=== PATIENT | male | born 1980 | race Caucasian/White ===

== ENCOUNTER → 2021-12-25 08:36 | Outpatient (CLI) | payer MEDICARE, MEDICAID, SELFPAY ==
[2021-12-25 10:48] LABS: Alanine Aminotransferase 21 IU/L (<50); Albumin 4.5 g/dL (3.5-5.0); Albumin Globulin Ratio 1.6 (1.0-2.8); Alkaline Phosphatase 65 U/L (38-126); Aspartate Aminotransferase 25 IU/L (17-59); BUN Creatinine Ratio 13.3 (6-22); Bilirubin Total 0.4 mg/dL (0.2-1.3); Blood Urea Nitrogen 11 mg/dL (9-20); Calcium 9.7 mg/dL (8.4-10.2); Carbon Dioxide 28 mmol/L (22-32); Chloride 105 mmol/L (98-107); Cholesterol 146 mg/dL (140-199); Estimated Glomerular Filt Rate > 60.0 mL/min (>60); Globulin 2.8 g/dL (1.7-4.1); Glucose 102 mg/dL (70-100); HDL Cholesterol 34 mg/dL (40-60); HEMOLYSIS < 15 (0-50); LDL Cholesterol Calculated 99 mg/dL (<100); Potassium 4.3 mmol/L (3.4-5.1); Sodium 140 mmol/L (137-145); Total Protein 7.3 g/dL (6.3-8.2); Triglycerides 67 mg/dL (35-150)
== END ==
PROVIDERS: PCP Internal Medicine; Referring Provider Internal Medicine; Visit Provider Internal Medicine
DX: E78.2 Mixed hyperlipidemia (principal)
CPT/HCPCS: 36415; 80053; 80061

== ENCOUNTER → 2022-01-12 10:07 | Outpatient (CLI) | payer MEDICARE, MEDICAID, SELFPAY ==
[2022-01-12 13:11] LABS: COVID19 -Nasal RAPID Negative (Negative)
== END ==
PROVIDERS: PCP Internal Medicine; Visit Provider Surgery
DX: Z01.812 Encounter for preprocedural laboratory examination (principal); Z20.822 Contact with and (suspected) exposure to COVID-19
CPT/HCPCS: 87635; C9803

== ENCOUNTER → 2022-01-13 14:09 | Day surgery (SDC) | payer MEDICARE, MEDICAID, SELFPAY ==
[2022-01-13] VITALS (7 sets, daily range): BP systolic 115–138; BP diastolic 63–81; PULSE 74–95; RESP 12–16; TEMP 36.6–36.8; O2SAT 98–100; BMI 24.0; BMI 24.3
[2022-01-13] MEDS: LACTATED RINGERS 1,000 ML 42 ML IV (15:01)
--- NOTE | 2022-01-13 16:36 | PM.HP.1 ---
History of Present Illness History of Present Illness Date Patient Seen: 01/13/22 Time Patient Seen: 16:36 Chief complaint: NCC Narrative: 41-year-old man with a symptomatic left inguinal hernia which has been bothering her for over year now. He had hernia repair as an . Patient History Medical History Allergies (~1999) Chronic back pain (~2014) Mixed hyperlipidemia Surgical History Anesthesia History of hernia repair (~1981) Family & Social History Family History Father Mental health problem Mother Back problem Diabetes mellitus Hypertension Hyperlipidemia Grandmother Cancer Diabetes mellitus History of heart disease Hyperlipidemia Hypertension Social History: household members family Tobacco & Substance use: Tobacco type cigarettes Smoking Status Current every day smoker Smoking packs per day 1 alcohol intake current alcohol intake frequency a few times a month Substance Use Type does not use Meds Home Medications and Allergies Home Medications Medication Instructions Recorded Confirmed Type atorvastatin 10 mg tablet 10 mg PO BEDTIME 12/02/21 01/13/22 History Allergies Allergy/AdvReac Type Severity Reaction Status Date / Time No Known Drug Allergies Allergy Verified 12/11/21 13:18 Exam Vital Signs (past 8 hours): - 01/13/22 14:52 Temperature 98.2 F Pulse Rate 95 H Respiratory Rate 16 Blood Pressure 138/81 Pulse Oximetry 98 Oxygen Delivery Method Room Air Const General: healthy appearing Resp Effort & Inspection: normal respiratory effort GI Other: Left inguinal hernia Assessment & Plan Assessment and plan (1) Reducible left inguinal hernia: Status: Acute Plan 41-year-old man with a symptomatic left inguinal hernia. He would like to have surgery to repair it. We reviewed the risks and benefits of left inguinal hernia repair with mesh. He would like to proceed. COVID-19 COVID-19 status: Negative Result date/Date tested (Pos, Neg/Pending): 01/12/22 Time Spent With Patient Critical Care time: I spent a total of [] minutes of critical care time on this patient's care today; this time is exclusive of procedural time.
[2022-01-13] MEDS: CEFAZOLIN 2 GM/20 ML SYRINGE IV (16:55)
--- NOTE | 2022-01-13 17:25 | SUR.OPER ---
Supine on padded OR bed, head on pillow, arms secured on padded arm boards at <90 degrees abduction, legs uncrossed, safety belt at thigh, tape over blanket over lower legs.
[2022-01-13] MEDS: BUPIVACAINE 0.5% (PF) 30 ML, EPINEPHrine 0.15 MG INJ (17:29)
[2022-01-13] MEDS: LIDOCAINE 1% 20 ML INJ (17:30)
--- NOTE | 2022-01-13 18:11 | PM.OP.1 ---
Operative Date/Time/Diagnoses Date of procedure: 01/13/22 Time of procedure: 18:12 Pre-op diagnosis: Recurrent left inguinal hernia Post-op diagnosis: same Procedure & Clinicians Procedure: Recurrent left inguinal hernia repair with mesh Same procedure as scheduled: Yes Surgeon: Herb Traylor Anesthesia Type: General Operative Notes Findings: Indirect hernia Procedure in detail: Preoperative antibiotic was administered. The patient was brought to the operating room and placed on the table in supine position general anesthesia was induced. The left groin was prepped and draped in the normal fashion and a time-out was performed. Roughly 10 mL of local anesthetic were injected into the skin and subcutaneous adipose tissue over the left groin. A 6 cm incision was made over the left distal portion of the old surgical scar. Dissection was carried down through the subcutaneous adipose tissue. We exposed the external oblique aponeurosis in the direction of the fibers. Additional local was injected deep to the aponeurosis. A 15 blade scalpel was used to meliton the external oblique aponeurosis. Metzenbaum scissors were used to carefully open the aponeurosis in the direction of the fibers. The ilioinguinal nerve was not seen and was presumed resected during his prior operation. We completely exposed the inguinal canal. The cord was dissected free from the inguinal ligament and floor of the inguinal canal and the external oblique aponeurosis was dissected off of the internal oblique. We encircled the cord with a Artie drain for retraction. There was an indirect hernia. Because the sac was long we transected the sac at the mid point and left the distal end open. The proximal portion of the sac contained visceral fat that was adherent to the sac lining. The sac was allowed to fall back into the abdomen. We then fashioned a piece of polypropylene mesh to fit the inguinal canal floor. The mesh was secured with multiple interrupted 3-0 Prolene sutures to the pubic tubercle and shelving edge of the inguinal ligament as well as to the conjoint tendon medially. We cut a slit in the mesh and overlapped the tails to recreate an internal ring and secured the medial tail to the inguinal ligament with additional sutures. We injected some more local into the fatty tissue in the inguinal canal and cord. Finally, we removed the Moca drain and closed the external oblique fascia with a running 3-0 Vicryl suture. Skin was closed with interrupted 3-0 Vicryl dermal sutures and a running 4 Monocryl subcuticular stitch. EBL 5 mL The patient was awakened and brought to recovery room. Post-operative Condition: stable Disposition: PACU
[2022-01-13] MEDS: OXYCODONE IR 5 MG TABLET PO (18:39)
[2022-01-13] MEDS: ACETAMINOPHEN 325 MG TABLET 650 MG PO (18:40)
--- NOTE | 2022-01-13 18:44 | SUR.PHASEI ---
Pt arrived to PACU, airway self maintained, medicated with po pain meds, no nausea, tolerating fluids and applesauce.
--- NOTE | 2022-01-13 19:06 | SUR.PHASEII ---
d/c instructions discussed, mom called, pt ready to go, dressing remained c/d/i. Pt left unit in stab;le condition.
== END | disposition home or self-care (01) ==
PROVIDERS: PCP Internal Medicine; Referring Provider Surgery; Visit Provider Surgery
PROC: (CPT 49520; principal; 2022-01-13 15:45)
DX: K40.91 Unilateral inguinal hernia, without obstruction or gangrene, recurrent (principal)
CPT/HCPCS: 49520; J0171; J0690; J1100; J2405; J2704; J3010

== ENCOUNTER 2022-08-19 17:33 | Emergency (ER) | payer MEDICARE, MEDICAID, SELFPAY ==
[2022-08-19 17:38] VITALS: BP 150/77; PULSE 77; RESP 14; TEMP 36.5; O2SAT 99; BMI 24.3
--- NOTE | 2022-08-19 17:42 | DI.RAD.S_ITS ---
PROCEDURE: XR HAND RT MIN 3V INDICATIONS: hand pain TECHNIQUE: 3 views of the hand(s) acquired. COMPARISON: None. FINDINGS: Bones: No fractures or dislocations. Carpal bones are normally aligned. No suspicious bony lesions. Soft tissues: No suspicious soft tissue calcifications. IMPRESSION: Hand plain films within normal limits. Dictated by: Uziel Palacio M.D. on 08/19/2022 at 17:05 Approved by: Uziel Palacio M.D. on 08/19/2022 at 17:05
--- NOTE | 2022-08-19 18:09 | ED.EXTPRO ---
HPI - Extremity Problem General Chief complaint: Extremity Problem,Nontraumatic Stated complaint: rt middle finger pain Time Seen by Provider: 08/19/22 18:04 Source: patient Mode of arrival: Ambulatory History of Present Illness HPI Narrative: Patient is a healthy 42-year-old male is who presents with right middle finger pain and swelling. 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 he has noticed over the last couple days it to be more painful he is able to move it is not extremely swollen or red but does hurt when he moves it he denies any injury he has not yet taken anything for pain Related Data Allergies Allergy/AdvReac Type Severity Reaction Status Date / Time No Known Drug Allergies Allergy Verified 08/19/22 17:39 Review of Systems Review of Systems Narrative: GENERAL: Denies chills,fever HEENT: Denies throat pain RESPIRATORY: Denies dyspnea, cough, wheezing CARDIOVASCULAR: Denies chest pain, palpitations GASTROINTESTINAL: Denies nausea, vomiting MUSCULOSKELETAL: See HPI SKIN: No rash, no laceration, no pruritus NEUROLOGIC: Denies weakness, dizziness, headache, numbness 8 point review of systems is negative except for those stated above and HPI Patient History Medical History Allergies (~1999) Chronic back pain (~2014) Mixed hyperlipidemia Reducible left inguinal hernia Surgical History Anesthesia History of hernia repair (01/13/22) Family History Father Mental health problem Mother Back problem Diabetes mellitus Hypertension Hyperlipidemia Grandmother Cancer Diabetes mellitus History of heart disease Hyperlipidemia Hypertension Social History household members: family Smoking Status: Current every day smoker alcohol intake: current Smoking Status: Current every day smoker alcohol intake frequency: holidays/special occasions only Substance Use Type: does not use Exam Initial Vital Signs Initial Vital Signs: Vital Signs Temperature 97.7 F 08/19/22 17:38 Pulse Rate 77 08/19/22 17:38 Respiratory Rate 14 08/19/22 17:38 Blood Pressure 150/77 H 08/19/22 17:38 Pulse Oximetry 99 08/19/22 17:38 Oxygen Delivery Method 08/19/22 17:38 GENERAL: Well-appearing, well-nourished and in no acute distress. CARDIOVASCULAR: peripheral pulses in tact, cap refill <2 sec RESPIRATORY: No respiratory distress, speaks in full sentences without difficulty EXTREMITIES: Normal range of motion, no clubbing or edema. Neurovascularly intact In the right hand with finger mildly swollen not erythematous full range of motion mildly tender to touch on the palmar side calluses noted good cap refill NEUROLOGICAL: Cranial nerves II through XII grossly intact. Normal gait and speech. SKIN: Warm, dry, no petechiae, no rashes or lesions. Course Orders Ordered: ED Orders 08/19/22 17:42 XR hand RT min 3V Stat Discontinued Medications Ibuprofen (Ibuprofen 400 Mg Tablet) 800 mg PO NOW ONE Stop: 08/19/22 18:15 Last Admin: 08/19/22 18:22 Dose: 800 mg Documented By: SUSAN Vital Signs Vital signs: Vital Signs - 8 hr 08/19/22 17:38 Temperature 97.7 F Pulse Rate 77 Respiratory Rate 14 Blood Pressure 150/77 H Pulse Oximetry 99 Oxygen Delivery Method Room Air MDM - Extremity (Nontraumatic) Imaging Data Extremity x-ray #1: Radiologist's Impression: Patient: Elmer Blas MR#: [id number] : 1980 Acct:[id number] Age/Sex: 42 / M Date of Service: 08/19/22 Loc: ED Accession Number: [id number] ?? Procedure: XR hand RT min 3V Ordering Provider: Woo Umanzor MD PROCEDURE:? XR HAND RT MIN 3V ? INDICATIONS:? hand pain ? TECHNIQUE:? 3 views of the hand(s) acquired.? ? COMPARISON:? None. ? FINDINGS:? ? Bones:? No fractures or dislocations.? Carpal bones are normally aligned.? No suspicious bony lesions.? ? Soft tissues:? No suspicious soft tissue calcifications.? ? ? IMPRESSION:? ? Hand plain films within normal limits. ? ? Dictated by: Uziel Palacio M.D. on 08/19/2022 at 17:05 ? ? Approved by: Uziel Palacio M.D. on 08/19/2022 at 17:05 ? MDM Narrative Medical decision making narrative: Patient's finger is mildly swollen without injury x-rays negative. No concern for flexor tenosynovitis. No concern for trigger finger. Probable strain. He is right-hand dominant and works in construction. Given strict return precautions. Discharge Plan Departure Patient Disposition: Home Clinical Impression: Muscle strain of finger of right hand Instructions: DI for Trigger Finger, DI for Finger Sprain Activity Restrictions/Additional Instructions: *You have been diagnosed with right middle finger sprain *What to do: At this time try to rest her hand ice 20-30 minutes at a time especially after work. Monitor for any worsening symptoms *Continue to take medications as directed Ibuprofen 600 mg every 6 hours if needed for [id number] pain *Follow up with your primary care provider in 2-3 days or call [phone] *Return to ER if you should have increasing swelling pain difficulty moving redness fever or any new, worsening or concerning symptoms Referrals: Roney Earl MD [Primary Care Provider] - Visit Report Forms: Patient Portal/API
[2022-08-19] MEDS: IBUPROFEN 400 MG TABLET 800 MG PO (18:22)
== END 2022-08-19 18:23 | disposition home or self-care (01) ==
PROVIDERS: Emergency Provider Emergency Medicine; PCP Internal Medicine
DX: S56.113A Strain of flexor muscle, fascia and tendon of right middle finger at forearm level, initial encounter (principal); X58.XXXA Exposure to other specified factors, initial encounter; Y99.0 Civilian activity done for income or pay
CPT/HCPCS: 73130; 99283

== ENCOUNTER 2022-08-23 15:04 | Emergency (ER) | payer MEDICARE, MEDICAID, SELFPAY ==
[2022-08-23 15:29] VITALS: BP 109/69; PULSE 90; RESP 18; TEMP 37.3; O2SAT 97; BMI 24.3
--- NOTE | 2022-08-23 17:32 | ED_ITS ---
HPI - Extremity Problem <Oral Fernandez PA-C - Last Filed: 08/23/22 17:41> General Chief complaint: Extremity Problem,Nontraumatic Stated complaint: Wrist pain Time Seen by Provider: 08/23/22 16:40 Source: patient Mode of arrival: Ambulatory History of Present Illness HPI Narrative: Patient is a 42-year-old male who presents to the emergency room today with complaint of right wrist pain started this morning. Admits to being seen here in this emergency room a mid last week for right middle finger pain. States an x-ray was done and was negative and also states he was diagnosed with a finger sprain at that time states she is concerned right now because he felt a pop in his wrist and thinks that maybe injured it. Denies any trauma to the wrist before his visit to the emergency room last week and before the visit today. Denies any other concerns. Related Data Allergies Allergy/AdvReac Type Severity Reaction Status Date / Time No Known Drug Allergies Allergy Verified 08/19/22 17:39 Review of Systems <Oral Fernandez PA-C - Last Filed: 08/23/22 17:41> Review of Systems Narrative: R.O.S.: General: No fever, chills or fatigue. Cardiovascular: No chest pain or palpitations Respiratory: No S.O.B. HEENT: No congestion, ear pain, rhinorrhea, sore throat or tinnitus Gastrointestinal: No nausea or vomiting : No urinary concerns Skin: No rash or associated abnormalities Musculoskeletal: Right wrist pain? Neurological: Awake, alert and in not apparent distress. No Headaches, changes in vision or other related neurological concerns. Patient History <Oral Fernandez PA-C - Last Filed: 08/23/22 17:41> Medical History Allergies (~1999) Chronic back pain (~2014) Mixed hyperlipidemia Reducible left inguinal hernia Surgical History Anesthesia History of hernia repair (01/13/22) Family History Father Mental health problem Mother Back problem Diabetes mellitus Hypertension Hyperlipidemia Grandmother Cancer Diabetes mellitus History of heart disease Hyperlipidemia Hypertension Social History (Reviewed 08/19/22 @ 18:10 by ALYCE Tipton household members: family Smoking Status: Current every day smoker alcohol intake: current Smoking Status: Current every day smoker alcohol intake frequency: holidays/special occasions only Substance Use Type: does not use Exam <Oral Fernandez PA-C - Last Filed: 08/23/22 17:41> Narrative Exam Narrative: Physical Exam: ? General: normal appearance, well developed, well nourished, alert, and awake. Not in acute distress. ? Head: Normocephalic, no lesions. Chest: Lungs CTAB, no rales, rhonchi or wheezes. ?? Heart: RRR, no murmurs, rubs or gallops. Eyes: PERRLA, EOM's full, conjunctivae clear. ? Neuro: Physiological, no localizing findings, CN3-12 intact. ?? Extremities: Patient's right hand and wrist have good range of motion good strength intact sensation to touch and good capillary refill. Hand and wrist also have no signs of visible trauma. ? Skin: Normal, no rashes, no lesions noted. ?? PSYCHIATRIC: The mood is good, no blunted affect. Speech is clear. Thought process is linear, thought content is appropriate. The voice is without significant inflection. Gastrointestinal: Soft; NT; ND; Pos BS with Neg. rebound tenderness. No scars or major deformities noted on Visual Inspection. Initial Vital Signs Initial Vital Signs: Vital Signs Temperature 99.2 F 08/23/22 15:29 Pulse Rate 90 08/23/22 15:29 Respiratory Rate 18 08/23/22 15:29 Blood Pressure 109/69 08/23/22 15:29 Pulse Oximetry 97 08/23/22 15:29 Oxygen Delivery Method 08/23/22 15:29 <Antonio Barrera DO - Last Filed: 08/23/22 17:54> Initial Vital Signs Initial Vital Signs: Vital Signs Temperature 99.2 F 08/23/22 15:29 Pulse Rate 90 08/23/22 15:29 Respiratory Rate 18 08/23/22 15:29 Blood Pressure 109/69 08/23/22 15:29 Pulse Oximetry 97 08/23/22 15:29 Oxygen Delivery Method 08/23/22 15:29 Course <Oral Fernandez PA-C - Last Filed: 08/23/22 17:41> Vital Signs Vital signs: Vital Signs - 8 hr 08/23/22 15:29 Temperature 99.2 F Pulse Rate 90 Respiratory Rate 18 Blood Pressure 109/69 Pulse Oximetry 97 Oxygen Delivery Method Room Air <Antonio Barrera DO - Last Filed: 08/23/22 17:54> Vital Signs Vital signs: Vital Signs - 8 hr 08/23/22 15:29 Temperature 99.2 F Pulse Rate 90 Respiratory Rate 18 Blood Pressure 109/69 Pulse Oximetry 97 Oxygen Delivery Method Room Air MDM - Extremity (Nontraumatic) <Oral Fernandez PA-C - Last Filed: 08/23/22 17:41> MDM Narrative Medical decision making narrative: Patient is a 42-year-old male presents to the emergency room complaining of right wrist pain after being seen in emergency room last Wednesday for right finger pain. Patient denies trauma to the hand or wrist and Physical exam does not reveal any signs of urgent emergent status this time. Provider discussed emergent or urgent concerns with patient and advised patient to return emergency room should any emergent concerns arise. Discharge Plan Departure Patient Disposition: Home Clinical Impression: Sprain and strain of right wrist Instructions: DI for Wrist Sprain Activity Restrictions/Additional Instructions: *You have been diagnosed with sprain of your right wrist. Suggested refrain from any overuse or strenuous activity involving right wrist. Also suggest she return to the emergency room for any emergent concerns arise. [ ] *What to do: *Please continue to take your regular medications as directed. [ ] New medication prescriptions sent to your pharmacy: [ ] [ ] New medication written as a paper prescription [x] No new medications given *Please follow up with your primary care provider in 2-3 days, call for an appointment. Let them know you were seen in the Emergency Department and that we ask that you be seen in follow up. We will electronically transmit a record of today's note if your PCP is in our system *If you do not have a primary care provider please contact the [facility] Resource line at [phone]. They will ask some questions about your medical history and help get you set up with a doctor in the community. *Return to Emergency Department if you should have any new, worsening or concerning symptoms, such as [fever greater than 101 F, shaking chills, worsening pain, persistent vomiting or other bothersome symptoms] Referrals: Roney Earl MD [Primary Care Provider] - <Antonio Barrera, - Last Filed: 08/23/22 17:54> Cosign ED Attending Cosignature Attestation: Dr Barrera Co-Sign Statement: I was available for consultation during this patient's emergency department visit. This chart is signed by myself for administrative purposes only. I did not have direct contact with this patient during this visit. They were seen independently by the APC.
== END 2022-08-23 17:58 | disposition home or self-care (01) ==
PROVIDERS: Emergency Provider Physician Assistant; PCP Internal Medicine
DX: S63.501A Unspecified sprain of right wrist, initial encounter (principal); S66.911A Strain of unspecified muscle, fascia and tendon at wrist and hand level, right hand, initial encounter; X50.1XXA Overexertion from prolonged static or awkward postures, initial encounter
CPT/HCPCS: 99281

== ENCOUNTER 2023-01-01 17:09 | Emergency (ER) | payer MEDICARE, MEDICAID, SELFPAY ==
[2023-01-01 17:14] VITALS: BP 139/78; PULSE 89; RESP 18; TEMP 37.2; O2SAT 100; BMI 25.0
--- NOTE | 2023-01-01 17:20 | DI.RAD.S_ITS ---
PROCEDURE: XR FINGER RT MIN 2V INDICATIONS: pain, popping/swelling, ongoing TECHNIQUE: AP hand, 2 views of the 3rd finger(s) acquired. COMPARISON: [facility], , XR HAND RT MIN 3V, 08/19/2022, 17:52. FINDINGS: Bones: No fractures or dislocations. No suspicious bony lesions. Soft tissues: No suspicious soft tissue calcifications. IMPRESSION: No acute osseous abnormalities. If clinical symptoms persist or clinical suspicion for pathology is high, a repeat examination in 7-10 days, or advanced imaging such as CT or MRI is suggested for further evaluation. Dictated by: Beth Hightower M.D. on 01/01/2023 at 19:01 Approved by: Beth Hightower M.D. on 01/01/2023 at 19:02
--- NOTE | 2023-01-01 18:32 | ED_ITS ---
HPI - Recheck/Abnormal Lab/Rx <Nissa Ventura PA-C - Last Filed: 01/01/23 19:33> General Chief Complaint: Recheck/Abnormal Lab/Rx Stated Complaint: Pain in finger, Hernia Time Seen by Provider: 01/01/23 18:32 Source: patient Mode of arrival: Ambulatory History of Present Illness HPI narrative: 42-year-old male presents with concern for popping sensation in his right middle finger when he flexes it and wanting his hernia area that has previously been repaired to be looked at as it has been ?feeling funny today?. Regarding his finger he states that about 3 or 4 months ago he noticed it was popping when he flexes it he is not noticed any change in function or dropping things or any reduction in the strength he has not had any numbness tingling or color change to the finger does say sometimes he feels like it swells up a little bit and then it improves. He does not remember sustaining any specific injury to it. Regarding his hernia he states that he had hernia repair about 1 year ago and today he noticed a mild persistent on feeling at the area of his hernia scar he does not describe it as pain but he just wants the area to be looked at. He denies fevers, chills, abdominal pain, nausea, vomiting, diarrhea or any other symptoms. Related Data Allergies Allergy/AdvReac Type Severity Reaction Status Date / Time No Known Drug Allergies Allergy Verified 08/19/22 17:39 Review of Systems <Nissa Ventura PA-C - Last Filed: 01/01/23 19:33> Review of Systems Narrative: Unremarkable except as noted in the HPI Patient History <Nissa Ventura PA-C - Last Filed: 01/01/23 19:33> Medical History Allergies (~1999) Chronic back pain (~2014) Mixed hyperlipidemia Reducible left inguinal hernia Surgical History Anesthesia History of hernia repair (01/13/22) Family History Father Mental health problem Mother Back problem Diabetes mellitus Hypertension Hyperlipidemia Grandmother Cancer Diabetes mellitus History of heart disease Hyperlipidemia Hypertension Social History household members: family Smoking Status: Current every day smoker alcohol intake: current Smoking Status: Current every day smoker alcohol intake frequency: holidays/special occasions only Substance Use Type: does not use Exam <Nissa Vnetura PA-C - Last Filed: 01/01/23 19:33> Narrative Exam Narrative: Entire exam was completed with logistics center manager in the room GENERAL: 42 year old patient appears stated age. Well-developed patient, in mild distress. HEAD: Atraumatic. Normocephalic. EYES: Pupils equal round and reactive. Extraocular motions intact. No scleral icterus. No injection or drainage. ENT: Nose without bleeding, purulent drainage. Airway patent. NECK: Trachea midline. Non tender CARDIOVASCULAR: Regular rate and rhythm without murmurs, gallops, or rubs. RESPIRATORY: Clear to auscultation. Breath sounds equal bilaterally. No wheezes, rales, or rhonchi. GASTROINTESTINAL: Abdomen soft, non-tender, nondistended, palpation over the left inguinal hernia scar and left lower quadrant is nontender with no masses, pt states that feels good. EXTREMITIES: The right middle finger in question has no appreciable swelling, no tenderness on exam, range of motion and strength are intact. Capillary refill is less than 2 seconds. No edema or joint tenderness. BACK: Nontender without deformity or crepitance. No flank tenderness. NEURO: AOx3. SKIN: No rash or erythema of visible areas Initial Vital Signs Initial Vital Signs: Vital Signs Temperature 99 F 01/01/23 17:14 Pulse Rate 89 01/01/23 17:14 Respiratory Rate 18 01/01/23 17:14 Blood Pressure 139/78 01/01/23 17:14 Pulse Oximetry 100 01/01/23 17:14 Oxygen Delivery Method 01/01/23 17:14 <Sandra Sanderson DO - Last Filed: 01/02/23 07:38> Initial Vital Signs Initial Vital Signs: Vital Signs Temperature 99 F 01/01/23 17:14 Pulse Rate 89 01/01/23 17:14 Respiratory Rate 18 01/01/23 17:14 Blood Pressure 139/78 01/01/23 17:14 Pulse Oximetry 100 01/01/23 17:14 Oxygen Delivery Method 01/01/23 17:14 Course <Nissa Ventura PA-C - Last Filed: 01/01/23 19:33> Orders Ordered: ED Orders 01/01/23 17:20 XR finger RT min 2V Stat Vital Signs Vital signs: Vital Signs - 8 hr 01/01/23 17:14 01/01/23 18:52 Temperature 99 F Pulse Rate 89 80 Respiratory Rate 18 17 Blood Pressure 139/78 138/70 Pulse Oximetry 100 98 Oxygen Delivery Method Room Air <Sandra Sanderson DO - Last Filed: 01/02/23 07:38> Orders Ordered: ED Orders 01/01/23 17:20 XR finger RT min 2V Stat Vital Signs Vital signs: Vital Signs - 8 hr 01/01/23 17:14 01/01/23 18:52 Temperature 99 F Pulse Rate 89 80 Respiratory Rate 18 17 Blood Pressure 139/78 138/70 Pulse Oximetry 100 98 Oxygen Delivery Method Room Air MDM - Recheck/Abnormal Lab/Rx <Nissa Ventura PA-C - Last Filed: 01/01/23 19:33> Differential Diagnosis Differential diagnosis: Likely other (Encounter for evaluation of finger popping/intermittent pain, recheck of surgical hernia repair site) Medical Records Attestation: I reviewed the patient's medical records. Imaging Data Extremity x-ray #1: Radiologist's Impression: [place] [address] XRay Report Signed Patient: Elmer Blas MR#: [id number] : 1980 Acct:[id number] Age/Sex: 42 / M Date of Service: 01/01/23 Loc: ED Accession Number: [id number] ?? Procedure: XR finger RT min 2V Ordering Provider: Sandra Sanderson D.O. PROCEDURE:? XR FINGER RT MIN 2V ? INDICATIONS:? pain, popping/swelling, ongoing ? TECHNIQUE:? AP hand, 2 views of the 3rd finger(s) acquired.? ? COMPARISON:? [facility], , XR HAND RT MIN 3V, 08/19/2022, 17:52. ? FINDINGS:? ? Bones:? No fractures or dislocations.? No suspicious bony lesions.? ? Soft tissues:? No suspicious soft tissue calcifications.? ? IMPRESSION:? No acute osseous abnormalities.? If clinical symptoms persist or clinical suspicion for pathology is high, a repeat examination in 7-10 days, or advanced imaging such as CT or MRI is suggested for further evaluation. ? ? Dictated by: Beth Hightower M.D. on 01/01/2023 at 19:01 ? ? Approved by: Beth Hightower M.D. on 01/01/2023 at 19:02?? MDM Narrative Medical decision making narrative: 42-year-old male presents with multiple complaints, wants his finger right middle evaluated for popping sensation and intermittent swelling also wants his left inguinal hernia repair site looked at. X-rays today of the right middle finger show nothing concerning. Abdominal exam is also unremarkable. Patient is advised to follow up with his PCP and consider seeing orthopedics for further evaluation and but has concerns about his finger. Follow up with his surgeon if he has concerns regarding his hernia repair. Labs are not obtained abdominal imaging is not obtained as patient has no abdominal pain no tenderness on exam and no concerning history suggestive of intra-abdominal process. Return precautions provided, follow-up plan discussed, all questions answered. Discharge Plan Departure Patient Disposition: Home Clinical Impression: Finger pain, right, Status post inguinal hernia repair Activity Restrictions/Additional Instructions: Thank you for letting us be part of your care today in the emergency department. We did x-ray your finger. The function of your finger on exam seems to be totally normal, not finding any abnormalities on your x-ray either. It is possible that you at 1 point sustained an overuse injury or a sprain to your tendon on that finger which could explain why it makes a popping sound occasionally. If you have concern about it you can talk to your primary care provider about seeing an orthopedist for further evaluation. You also said that you wanted your hernia area to be checked where he previously had surgery. You do not have any belly pain on exam or any concerning findings. So no additional workup or evaluation was completed today. Just monitor your symptoms at home over the next few days to week, if you do feel that you are having new or worsening abdominal pain or other symptoms of concern do not hesitate to be re- evaluated. You can always check back in with your surgeon if you have concerns. There is no evidence of an emergent or life threatening illness at this time, but follow up with your doctor in 1-2 days is recommended nonetheless to continue to rule out serious underlying causes of your symptoms. Please call the office for an appointment. Please return to the Emergency Department for any worsening or persistent symptoms. Please take medications as directed. Referrals: Roney Earl MD [Primary Care Provider] - Stand Alone Forms: Patient Portal/API <Sandra Sanderson DO - Last Filed: 01/02/23 07:38> Cosign ED Attending Jellyature Attestation: I was immediately available in the department for consultation. Documentation has been reviewed.
[2023-01-01 18:52] VITALS: BP 138/70; PULSE 80; RESP 17; O2SAT 98
--- NOTE | 2023-01-01 18:53 | PC.NURSE ---
ward maid for provider to examine, full rom to r hand middle finger, no pain to llq/abd surgical site no pain to palpation no hernia [id number]
== END 2023-01-01 19:02 | disposition home or self-care (01) ==
PROVIDERS: Emergency Provider Student in an Organized Health Care Education/Training Program; PCP Internal Medicine
DX: M79.644 Pain in right finger(s) (principal); Z98.890 Other specified postprocedural states
CPT/HCPCS: 73140; 99283

== ENCOUNTER 2023-01-09 13:22 | Emergency (ER) | payer MEDICARE, MEDICAID, SELFPAY ==
[2023-01-09] VITALS (8 sets, daily range): BP systolic 117–151; BP diastolic 74–86; PULSE 75–95; RESP 16–26; TEMP 37.3; O2SAT 98–99; BMI 24.3
--- NOTE | 2023-01-09 13:28 | DI.RAD.S_ITS ---
PROCEDURE: XR CHEST 2V INDICATIONS: pain in chest with deep breath TECHNIQUE: 2 views of the chest were acquired. COMPARISON: None. FINDINGS: Surgical changes and devices: None. Lungs and pleura: Lungs are clear. No pleural effusions or pneumothorax. Mediastinum: Mediastinal contours are normal. Heart size is normal. Bones and chest wall: No suspicious bony abnormalities. Soft tissues appear unremarkable. IMPRESSION: Normal two view chest x-ray Approved by: Adrian Márquez M.D. on 01/09/2023 at 14:19
--- NOTE | 2023-01-09 16:52 | ED_ITS ---
HPI - Chest Pain General Chief Complaint: Chest Pain Stated Complaint: thightness in chest Time Seen by Provider: 01/09/23 16:52 Source: patient Mode of arrival: Family Vehicle Limitations: no limitations History of Present Illness HPI narrative: This is a 42-year-old male with history of chronic tobacco use, seasonal allergies which he just started Zyrtec for today. Patient states the past 3 or 4 days he is had runny nose, cough that has been nonproductive, he is not had any reported fevers. He is felt generally unwell. States today he felt tight all over on both sides of his lungs and had a little left-sided discomfort that resolved. He denies any shortness of breath. Patient states no new swelling in his extremities. No nausea no vomiting no diarrhea constipation. No urinary symptoms. Patient states he is not had similar symptoms in the past. He states it seems to be flared by his recent allergy symptoms. States he is never felt tight or wheezy in his chest, he is not had left-sided discomfort before. He states no daily medications normally. He did take Zyrtec for the 1st time today which he states it has been helpful. He states he has been taking Advil intermittently he was seen in the last week for injury to his tendon in his finger. He denies any other daily medications. No prior medical history. States he had a hernia repair about a year ago. No known drug allergies. S tates he smokes about half pack per day occasional ETOH. Denies any illicit or IV drugs. Denies any family history of cardiac, pulmonary embolic. States his primary care is Dr. Earl. Related Data Previous Rx's Medication Instructions Recorded prednisone 20 mg tablet 40 mg PO DAILY #8 tabs 01/09/23 Allergies Allergy/AdvReac Type Severity Reaction Status Date / Time No Known Drug Allergies Allergy Verified 01/09/23 13:27 Review of Systems Review of Systems ROS Unobtainable: All systems reviewed & are unremarkable except as noted in HPI and below Patient History Medical History Allergies (~1999) Chronic back pain (~2014) Mixed hyperlipidemia Reducible left inguinal hernia Surgical History Anesthesia History of hernia repair (01/13/22) Family History Father Mental health problem Mother Back problem Diabetes mellitus Hypertension Hyperlipidemia Grandmother Cancer Diabetes mellitus History of heart disease Hyperlipidemia Hypertension Social History household members: family Smoking Status: Current every day smoker alcohol intake: current Smoking Status: Current every day smoker alcohol intake frequency: holidays/special occasions only Substance Use Type: does not use Exam Narrative Exam Narrative: GENERAL: Alert and oriented x three, male in mild distress HEENT: Head normocephalic, atraumatic, EOMI, pupils reactive, face symmetric, moist mucous membranes NECK: Supple, full range of motion CARDIOVASCULAR: Regular rate and rhythm without murmurs, rubs or gallops. RESPIRATORY: Breath sounds equal bilaterally, no wheezes, no rhonchi. Patient has some questionable crackles mid lung. Not appreciated in the bases they are clear. No wheeze, patient has good air movement bilaterally. No tachypnea. Speaks in full sentences.. ABDOMEN: Soft, nontender. Normoactive bowel sounds all 4 quadrants. No guarding or rebound, rigidity, no mass : No CVA tenderness EXTREMITIES: Normal range of motion, no clubbing or edema. Neurovascularly intact NEUROLOGICAL: Cranial nerves II through XII grossly intact. Moving all extremities SKIN: Warm, dry, no petechiae, no rashes or lesions. Initial Vital Signs Initial Vital Signs: Vital Signs Temperature 99.2 F 01/09/23 13:25 Pulse Rate 95 H 01/09/23 13:25 Respiratory Rate 16 01/09/23 13:25 Blood Pressure 151/79 H 01/09/23 13:25 Pulse Oximetry 99 01/09/23 13:25 Oxygen Delivery Method 01/09/23 13:25 Scores HEART Score Heart Score history: Slightly Suspicious Heart Score EKG: Non-Specific repolarization disturbance Heart Score Age: < 45 years old Heart Score risk factors: No known risk factors Heart Score troponin: < or = to normal limit Heart Score Total: 1 PERC Score Age greater than or equal to 50 years: No Heart rate greater than or equal to 100 bpm: No Room Air O2 Sat less than 95%: No Unilateral leg swelling: No Recent trauma or surgery: No Hemoptysis: No Prior PE or DVT: No Hormone Use: No Total PERC Score: 0 Course Orders Ordered: ED Orders 01/09/23 13:28 XR chest 2V Stat 01/09/23 13:35 EKG-12 Lead Routine 01/09/23 17:19 Complete Blood Count AUTO DIFF Stat Comprehensive Metabolic Panel Stat Covid-19 + FLU A/B + RSV - PCR Stat Lipase Stat NT-proBNP (BNP-Adult 18+) Stat Troponin & CK Cardiac Panel Stat Discontinued Medications Prednisone (Prednisone 20 Mg Tablet) 60 mg PO NOW ONE Stop: 01/09/23 17:08 Last Admin: 01/09/23 17:38 Dose: 60 mg Documented By: NR Vital Signs Vital signs: Vital Signs - 8 hr 01/09/23 13:25 01/09/23 16:14 01/09/23 16:15 Temperature 99.2 F Pulse Rate 95 H 94 H 90 Respiratory Rate 16 Blood Pressure 151/79 H Pulse Oximetry 99 99 99 Oxygen Delivery Method Room Air 01/09/23 16:15 01/09/23 16:30 01/09/23 16:30 Temperature Pulse Rate 82 Respiratory Rate 19 Blood Pressure 143/86 H 121/76 Pulse Oximetry 99 Oxygen Delivery Method 01/09/23 17:00 01/09/23 17:00 01/09/23 17:30 Temperature Pulse Rate 84 Respiratory Rate 26 H Blood Pressure 139/84 117/76 Pulse Oximetry 98 Oxygen Delivery Method 01/09/23 17:30 01/09/23 18:00 01/09/23 18:00 Temperature Pulse Rate 75 76 Respiratory Rate 24 16 Blood Pressure 119/76 Pulse Oximetry 99 98 Oxygen Delivery Method 01/09/23 18:30 01/09/23 18:30 Temperature Pulse Rate 80 Respiratory Rate 23 Blood Pressure 119/74 Pulse Oximetry 99 Oxygen Delivery Method MDM - Chest Pain Lab Data 01/09/23 17:19 01/09/23 17:19 Labs: Lab Results 01/09/23 01/09/23 01/09/23 Range/Units 17:19 17:19 17:19 WBC 11.5 H (4.5-11.0) X10^3/uL RBC 4.61 (4.5-5.9) X10^6/uL Hgb 15.3 (13.5-17.5) g/dL Hct 44.1 (41-53) % MCV 95.7 (80-100) fL MCH 33.1 (26-34) PG MCHC 34.6 (30-36) % RDW 13.5 (11.6-14.8) % Plt Count 267 (150-400) X10^3/uL Neut % (Auto) 73.0 (50-75) % Lymph % (Auto) 18.4 L (25-40) % Hodgeman % (Auto) 7.7 (3-14) % Eos % (Auto) 0.3 L (2-4) % Baso % (Auto) 0.6 (0-2) % Neut # (Auto) 8400 H (0935-0404) /uL Lymph # (Auto) 2100 (9094-1214) /uL Hodgeman # (Auto) 900 (0-900) /uL Eos # (Auto) 0 (0-450) /uL Baso # (Auto) 100 (0-100) /uL Sodium 140 (137-145) mmol/L Potassium 3.9 (3.4-5.1) mmol/L Chloride 103 (98-107) mmol/L Carbon Dioxide 26 (22-32) mmol/L BUN 9 (9-20) mg/dL Creatinine 0.79 (0.66-1.25) mg/dL Estimated GFR > 60 (>60) mL/min BUN/Creatinine Ratio 11.4 (6-22) Glucose 97 (70-100) mg/dL Calcium 9.2 (8.4-10.2) mg/dL Total Bilirubin 0.5 (0.2-1.3) mg/dL AST 20 (17-59) IU/L ALT 21 (<50) IU/L Alkaline Phosphatase 83 (38-126) U/L Total Creatine Kinase 92 (55-170) U/L CK-MB (CK-2) TNP CK-MB (CK-2) Rel Index TNP Troponin I < 0.012 (0.01-0.034) ng/mL NT-Pro-B Natriuret Pep 19 (<125) pg/mL Total Protein 7.7 (6.3-8.2) g/dL Albumin 4.4 (3.5-5.0) g/dL Globulin 3.3 (1.7-4.1) g/dL Albumin/Globulin Ratio 1.3 (1.0-2.8) Lipase 55 (23-300) U/L SARS-CoV-2 (PCR) (Negative) Influenza A (RT-PCR) (NEGATIVE) Influenza B (RT-PCR) (NEGATIVE) RSV (PCR) (Negative) 01/09/23 Range/Units 17:19 WBC (4.5-11.0) X10^3/uL RBC (4.5-5.9) X10^6/uL Hgb (13.5-17.5) g/dL Hct (41-53) % MCV (80-100) fL MCH (26-34) PG MCHC (30-36) % RDW (11.6-14.8) % Plt Count (150-400) X10^3/uL Neut % (Auto) (50-75) % Lymph % (Auto) (25-40) % Hodgeman % (Auto) (3-14) % Eos % (Auto) (2-4) % Baso % (Auto) (0-2) % Neut # (Auto) (3724-4671) /uL Lymph # (Auto) (4232-2763) /uL Hodgeman # (Auto) (0-900) /uL Eos # (Auto) (0-450) /uL Baso # (Auto) (0-100) /uL Sodium (137-145) mmol/L Potassium (3.4-5.1) mmol/L Chloride (98-107) mmol/L Carbon Dioxide (22-32) mmol/L BUN (9-20) mg/dL Creatinine (0.66-1.25) mg/dL Estimated GFR (>60) mL/min BUN/Creatinine Ratio (6-22) Glucose (70-100) mg/dL Calcium (8.4-10.2) mg/dL Total Bilirubin (0.2-1.3) mg/dL AST (17-59) IU/L ALT (<50) IU/L Alkaline Phosphatase (38-126) U/L Total Creatine Kinase (55-170) U/L CK-MB (CK-2) CK-MB (CK-2) Rel Index Troponin I (0.01-0.034) ng/mL NT-Pro-B Natriuret Pep (<125) pg/mL Total Protein (6.3-8.2) g/dL Albumin (3.5-5.0) g/dL Globulin (1.7-4.1) g/dL Albumin/Globulin Ratio (1.0-2.8) Lipase (23-300) U/L SARS-CoV-2 (PCR) Negative (Negative) Influenza A (RT-PCR) Flu a negative (NEGATIVE) Influenza B (RT-PCR) Flu b negative (NEGATIVE) RSV (PCR) Negative (Negative) Imaging Data Chest x-ray: Radiologist's Impression: Close Chest X-Ray (Signed) Adrian Márquez - 01/09/23 Finger X-Ray (Signed) Beth Hightower - 01/01/23 Hand X-Ray (Signed) Uziel Palacio - 08/19/22 Launch?[address] [address] XRay Report Signed Patient: Elmer Blas MR#: [id number] : 1980 Acct:[id number] Age/Sex: 42 / M Date of Service: 01/09/23 Loc: ED Accession Number: [id number] ?? Procedure: XR chest 2V Ordering Provider: Brittany Hong D.O. PROCEDURE:? XR CHEST 2V ? INDICATIONS:? pain in chest with deep breath ? TECHNIQUE:? 2 views of the chest were acquired.? ? COMPARISON:? None. ? FINDINGS:? ? Surgical changes and devices:? None.? ? Lungs and pleura:? Lungs are clear.? No pleural effusions or pneumothorax.? ? Mediastinum:? Mediastinal contours are normal.? Heart size is normal.? ? Bones and chest wall:? No suspicious bony abnormalities.? Soft tissues appear unremarkable.? ? IMPRESSION:? Normal two view chest x-ray ? ? ? Approved by: Adrian Márquez M.D. on 01/09/2023 at 14:19? ECG Data Attestation: I personally reviewed and interpreted this ECG as follows: Prior ECG tracings: not available for review Interpretation: Sinus rhythm rate 87 KS 146 QRS 84 and QTC of 421. No acute ST elevation, no depression. Criteria for LVH. No priors for comparison. MDM Narrative Medical decision making narrative: This is a 42-year-old male who presents with complaint of tightness in his sensation of wheezing in his chest. He had some left-sided chest pain which is resolved. Patient states he has not had prior symptoms in the past. He does use tobacco, he is had what he describes as seasonal allergies but could also represent a viral infection recently. He has been afebrile. Lungs are overall clear maybe some possible crackles in the mid lungs but not in the bases. No wheezes appreciated he has good aeration throughout. Patient has not had any swelling or other changes concerning for CHF. He does not have a strong cardiac history. Discussed with patient suspect bronchitis with his past medical history but would be appropriate to do cardiac workup. CBC, CMP, troponin were obtained and are negative. Influenza A, covid, rsv is negative. EKG shows sinus rhythm, no priors for comparison. Chest x-ray is negative. Suspicion for cardiac, embolic or vascular source is low. Patient patient's symptomology suspect he have some bronchitis. Plan for short course of prednisone. Patient is not wheezy will not prescribe albuterol. No indication for antibiotics currently. We discussed return precautions. Discharge Plan Departure Patient Disposition: Home Clinical Impression: Bronchitis Instructions: DI for Acute Bronchitis Activity Restrictions/Additional Instructions: Follow-up for recheck if your symptoms are not improving in the next week. I would recommend taking steroids once daily until gone. Continue Zyrtec once daily. [facility] in [place] Please return for fevers, worsening chest pain, shortness of breath, lightheadedness or passing out, coughing up blood, new swelling in her extremities or other new or concerning changes. Prescriptions: New prednisone 20 mg tablet 40 mg PO DAILY Qty: 8 0RF Referrals: Roney Earl MD [Primary Care Provider] - Stand Alone Forms: Patient Portal/API
[2023-01-09 17:31] LABS: Add Manual Diff / Slide Review NO; Basophils Absolute Auto 100 /uL (0-100); Basophils Percent Auto 0.6 % (0-2); Eosinophils Absolute Auto 0 /uL (0-450); Eosinophils Percent Auto 0.3 % (2-4); Hematocrit 44.1 % (41-53); Hemoglobin 15.3 g/dL (13.5-17.5); Lymphocytes Absolute Auto 2100 /uL (1100-4500); Lymphocytes Percent Auto 18.4 % (25-40); Mean Corpuscular HGB Conc 34.6 % (30-36); Mean Corpuscular Hemoglobin 33.1 PG (26-34); Mean Corpuscular Volume 95.7 fL (80-100); Monocytes Absolute Auto 900 /uL (0-900); Monocytes Percent Auto 7.7 % (3-14); Neutrophils Absolute Auto 8400 /uL (1500-7000); Platelet Count 267 X10^3/uL (150-400); Red Blood Cell Count 4.61 X10^6/uL (4.5-5.9); Red Cell Distribution Width 13.5 % (11.6-14.8); White Blood Cell Count 11.5 X10^3/uL (4.5-11.0)
[2023-01-09] MEDS: predniSONE 20 MG TABLET 60 MG PO (17:38)
[2023-01-09 17:41] LABS: Alanine Aminotransferase 21 IU/L (<50); Albumin 4.4 g/dL (3.5-5.0); Albumin Globulin Ratio 1.3 (1.0-2.8); Alkaline Phosphatase 83 U/L (38-126); Aspartate Aminotransferase 20 IU/L (17-59); BUN Creatinine Ratio 11.4 (6-22); Bilirubin Total 0.5 mg/dL (0.2-1.3); Blood Urea Nitrogen 9 mg/dL (9-20); Calcium 9.2 mg/dL (8.4-10.2); Carbon Dioxide 26 mmol/L (22-32); Chloride 103 mmol/L (98-107); Creatine Kinase 92 U/L (55-170); Estimated Glomerular Filt Rate > 60 mL/min (>60); Globulin 3.3 g/dL (1.7-4.1); Glucose 97 mg/dL (70-100); HEMOLYSIS < 15 (0-50); Lipase 55 U/L (23-300); Potassium 3.9 mmol/L (3.4-5.1); Sodium 140 mmol/L (137-145); Total Protein 7.7 g/dL (6.3-8.2)
[2023-01-09 17:50] LABS: NT-proBNP (BNP-Adult 18+) 19 pg/mL (<125)
[2023-01-09 17:53] LABS: Troponin I < 0.012 ng/mL (0.01-0.034)
[2023-01-09 18:12] LABS: Influenza A - CEPHEID Flu A NEGATIVE (NEGATIVE); Influenza B - CEPHEID Flu B NEGATIVE (NEGATIVE); Respiratory Syncytial Virus Negative (Negative)
[2023-01-09 18:18] LABS: COVID-19 CEPHEID 4-PLEX PCR Negative (Negative)
== END 2023-01-09 18:49 | disposition home or self-care (01) ==
PROVIDERS: Emergency Provider Emergency Medicine; PCP Internal Medicine
DX: J40 Bronchitis, not specified as acute or chronic (principal); Z20.822 Contact with and (suspected) exposure to COVID-19
CPT/HCPCS: 0241U; 36415; 71046; 80053; 82550; 83690; 83880; 84484; 85025; 93005; 99284

== ENCOUNTER 2023-02-09 18:20 | Emergency (ER) | payer MEDICARE, MEDICAID, SELFPAY ==
[2023-02-09 18:29] VITALS: BP 159/81; PULSE 90; RESP 18; TEMP 37.2; O2SAT 96; BMI 24.3
--- NOTE | 2023-02-09 18:33 | ED_ITS ---
HPI - General Adult General Chief complaint: Abdominal Pain Stated complaint: herna pain Time Seen by Provider: 02/09/23 18:27 Source: patient Mode of arrival: Ambulatory History of Present Illness HPI narrative: Patient is a 42-year-old male who a couple years ago had a left inguinal hernia repair. He states that there was a mesh placed. On Wednesday he was lifting something out of his truck and had a fairly sudden onset of discomfort over the scar on the left side and since that has been somewhat uncomfortable. No new bulging. No testicular pain. No problems urinating. Related Data Previous Rx's Medication Instructions Recorded prednisone 20 mg tablet 40 mg PO DAILY #8 tabs 01/09/23 Allergies Allergy/AdvReac Type Severity Reaction Status Date / Time No Known Drug Allergies Allergy Verified 02/09/23 18:34 Review of Systems Constitutional Constitutional: Reports system reviewed and no additional complaints, except as documented Gastrointestinal Gastrointestinal: Reports system reviewed and no additional complaints, except as documented Genitourinary Genitourinary: Reports system reviewed and no additional complaints, except as documented Integumentary/Breasts Skin/Breast: Reports system reviewed and no additional complaints, except as documented Patient History Medical History Allergies (~1999) Chronic back pain (~2014) Mixed hyperlipidemia Reducible left inguinal hernia Surgical History Anesthesia History of hernia repair (01/13/22) Family History Father Mental health problem Mother Back problem Diabetes mellitus Hypertension Hyperlipidemia Grandmother Cancer Diabetes mellitus History of heart disease Hyperlipidemia Hypertension Social History household members: family Smoking Status: Current every day smoker alcohol intake: current Smoking Status: Current every day smoker alcohol intake frequency: holidays/special occasions only Substance Use Type: does not use Exam Initial Vital Signs Initial Vital Signs: Vital Signs Temperature 99 F 02/09/23 18:29 Pulse Rate 90 02/09/23 18:29 Respiratory Rate 18 02/09/23 18:29 Blood Pressure 159/81 H 02/09/23 18:29 Pulse Oximetry 96 03/28/23 18:29 Oxygen Delivery Method Room Air 02/09/23 18:29 GI Inspection: normal to inspection and non-distended Palpation: soft Other: No abdominal pain. No bulging noted in the left inguinal area Skin Other: Well-healed surgical scar left inguinal region Course Vital Signs Vital signs: Vital Signs - 8 hr 02/09/23 18:29 Temperature 99 F Pulse Rate 90 Respiratory Rate 18 Blood Pressure 159/81 H Pulse Oximetry 96 Oxygen Delivery Method Room Air Medical Decision Making MDM Narrative Medical decision making narrative: The discomfort is over the area of the scar in the left inguinal region however there is no new hernia felt. The scar appears well. No dehiscence. I suspect that what has happened is he is torn a small amount of scar tissue. I have lower suspicion that he has caused himself a new hernia. Will have him take it easy for the next couple days. He was given return precautions that if he starts to feel a bulge or has problems urinating that he needs to be re- evaluated. He expressed understanding and agreement. Discharge Plan Departure Patient Disposition: Home Clinical Impression: Left inguinal pain Activity Restrictions/Additional Instructions: Like we discussed I suspect what has happened is you have torn a small amount of scar tissue related to the surgery that you have had in the past. I do not feel any new hernias today. I recommend that you take it easy for the next couple days. If you start to have problems urinating or feel a new bulge in the area you do need to be re-evaluated. Prescriptions: No Action prednisone 20 mg tablet 40 mg PO DAILY Qty: 8 0RF Referrals: Roney Earl MD [Primary Care Provider] - Stand Alone Forms: Patient Portal/API
== END 2023-02-09 18:45 | disposition home or self-care (01) ==
PROVIDERS: Emergency Provider Emergency Medicine; PCP Internal Medicine
DX: R10.32 Left lower quadrant pain (principal)
CPT/HCPCS: 99281

== ENCOUNTER 2023-03-31 16:59 | Emergency (ER) | payer MEDICARE, MEDICAID, SELFPAY ==
[2023-03-31 17:16] VITALS: BP 135/78; PULSE 92; RESP 16; TEMP 37.2; O2SAT 99; BMI 24.3
--- NOTE | 2023-03-31 17:43 | DI.RAD.S_ITS ---
PROCEDURE: XR CERVICAL SPINE 2V OR 3V INDICATIONS: trauma TECHNIQUE: 4 view(s) of the cervical spine were acquired. COMPARISON: None. FINDINGS: Bones: No fractures or dislocations to the C7 level. The lateral masses of C1 appear intact on the odontoid view. No suspicious bony lesions. Soft tissues: No prevertebral soft tissue swelling. IMPRESSION: No acute fracture. No osseous lesion. If symptoms and/or clinical suspicion for pathology persist, further assessment with repeat, or advanced imaging (e.g., CT, MRI, or bone scan) may be helpful for further assessment. Dictated by: Anita Shanks M.D. on 03/31/2023 at 18:05 Approved by: Anita Shanks M.D. on 03/31/2023 at 18:05
--- NOTE | 2023-03-31 17:43 | DI.RAD.S_ITS ---
PROCEDURE: XR THORACIC SPINE 2V INDICATIONS: trauma TECHNIQUE: 2 views of the thoracic spine were acquired. COMPARISON: None. FINDINGS: Bones: No fractures or dislocations. No suspicious bony lesions. Visualized ribs are intact. Multilevel disc space narrowing and endplate osteophyte formation. Soft tissues: No paravertebral stripe thickening. IMPRESSION: Multilevel degenerative disc disease. No acute fracture. No osseous lesion. If symptoms and/or clinical suspicion for pathology persist, further assessment with repeat, or advanced imaging (e.g., CT, MRI, or bone scan) may be helpful for further assessment. Dictated by: Anita Shanks M.D. on 03/31/2023 at 18:10 Approved by: Anita Shanks M.D. on 03/31/2023 at 18:10
--- NOTE | 2023-03-31 17:53 | ED_ITS ---
HPI - Back Pain/Injury <CHERISE Benavides - Last Filed: 03/31/23 19:11> General Chief Complaint: Back Pain/Injury Stated Complaint: Fall t-6, Back/hip pain Time Seen by Provider: 03/31/23 17:34 Source: patient History of Present Illness HPI Narrative: This is a 43-year-old gentleman who presents to the emergency department states that 1 week ago approximately 6 days ago he had a fall while he was intoxicated and hurt his back. 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 He endorses occasional numbness and tingling in his fingers in his toes but states it is occasional and intermittent and does not last. He denies any urinary retention or frequency, denies incontinence. Denies any recent fever, denies history of substance abuse, denies weakness or mobility changes. States that he has been using ibuprofen and Tylenol without much improvement. Related Data Previous Rx's Medication Instructions Recorded prednisone 20 mg tablet 40 mg PO DAILY #8 tabs 01/09/23 lidocaine 5 % topical patch 1 patch topical DAILY PRN back 03/31/23 (Lidoderm) pain #30 ea methocarbamol 500 mg tablet 500 mg PO TID PRN muscle spasm #20 03/31/23 tabs prednisone 20 mg tablet 20 mg PO DAILY #4 tabs 03/31/23 Allergies Allergy/AdvReac Type Severity Reaction Status Date / Time No Known Drug Allergies Allergy Verified 02/09/23 18:34 Review of Systems <CHERISE Benavides - Last Filed: 03/31/23 19:11> Review of Systems ROS Unobtainable: All systems reviewed & are unremarkable except as noted in HPI and below Patient History <CHERISE Benavides - Last Filed: 03/31/23 19:11> Medical History Allergies (~1999) Chronic back pain (~2014) Mixed hyperlipidemia Reducible left inguinal hernia Surgical History Anesthesia History of hernia repair (01/13/22) Family History Father Mental health problem Mother Back problem Diabetes mellitus Hypertension Hyperlipidemia Grandmother Cancer Diabetes mellitus History of heart disease Hyperlipidemia Hypertension Social History household members: family Smoking Status: Current every day smoker alcohol intake: current Smoking Status: Current every day smoker tobacco type: cigarettes alcohol intake frequency: holidays/special occasions only Substance Use Type: does not use Exam <CHERISE Beanvides - Last Filed: 03/31/23 19:11> Narrative Exam Narrative: Reviewed vitals signs and nursing notes. General: Pleasant, sitting upright, in no acute distress, well groomed, afebrile HEENT: symmetrical facial expressions, moist mucous membranes, neck is supple CV: regular rate and rhythm, warm extremities Respiratory: normal work of breathing, without tachypnea or hypoxia. GI: abdomen soft, nondistended, without CVA tenderness bilaterally. MSK: moves all extremities, no weakness, normal tone, ambulatory without deficit, nontender along his whole spine, paraspinal musculature to upper trapezius and thoracic paraspinal musculature are tender to palpation, firm, and painful when elicited. No rash, weakness, discoloration, or sensation changes, ambulatory with steady gait. BACK: top dyeing machine tender but free of any obvious external abnormalities. Patient exam notes decreased range of motion and muscle spasm, but no CVA tenderness, or vertebral point tenderness. There are no symptoms of cauda equina such as saddle anesthesia, and decreased reflexes, decreased sensation or strength. Skin: brisk capillary refill, without rash or wound Neuro: clear speech and normal cognition, A&O x3, GCS 15, no focal motor or sensation deficits Initial Vital Signs Initial Vital Signs: Vital Signs Temperature 98.9 F 03/31/23 17:16 Pulse Rate 92 H 03/31/23 17:16 Respiratory Rate 16 03/31/23 17:16 Blood Pressure 135/78 03/31/23 17:16 Pulse Oximetry 99 03/31/23 17:16 Oxygen Delivery Method Room Air 03/31/23 17:16 <Antonio Barrera DO - Last Filed: 03/31/23 18:29> Initial Vital Signs Initial Vital Signs: Vital Signs Temperature 98.9 F 03/31/23 17:16 Pulse Rate 92 H 03/31/23 17:16 Respiratory Rate 16 03/31/23 17:16 Blood Pressure 135/78 03/31/23 17:16 Pulse Oximetry 99 03/31/23 17:16 Oxygen Delivery Method Room Air 03/31/23 17:16 Course <CHERISE Benavides - Last Filed: 03/31/23 19:11> Orders Ordered: ED Orders 03/31/23 17:43 XR cervical spine 2V or 3V Stat XR thoracic spine 2V Stat Discontinued Medications Ketorolac Tromethamine (Ketorolac 30 Mg/Ml Vial) 30 mg IM NOW ONE Stop: 03/31/23 17:46 Last Admin: 03/31/23 17:59 Dose: 30 mg Documented By: SUSAN Lidocaine (Lidocaine Patch 1 Each Adh..Patch) 1 each TOP NOW ONE Stop: 03/31/23 17:46 Last Admin: 03/31/23 18:01 Dose: 1 each Documented By: SUSAN Methocarbamol (Methocarbamol 500 Mg Tablet) 500 mg PO NOW ONE Stop: 03/31/23 17:46 Last Admin: 03/31/23 18:02 Dose: 500 mg Documented By: SUSAN Prednisone (Prednisone 20 Mg Tablet) 40 mg PO NOW ONE Stop: 03/31/23 17:46 Last Admin: 03/31/23 18:02 Dose: 40 mg Documented By: SUSAN Vital Signs Vital signs: Vital Signs - 8 hr 03/31/23 17:16 03/31/23 18:50 03/31/23 18:51 Temperature 98.9 F Pulse Rate 92 H 75 75 Respiratory Rate 16 18 18 Blood Pressure 135/78 134/78 134/78 Pulse Oximetry 99 100 100 Oxygen Delivery Method Room Air Room Air Room Air <Antonio Barrera DO - Last Filed: 03/31/23 18:29> Orders Ordered: ED Orders 03/31/23 17:43 XR cervical spine 2V or 3V Stat XR thoracic spine 2V Stat Discontinued Medications Ketorolac Tromethamine (Ketorolac 30 Mg/Ml Vial) 30 mg IM NOW ONE Stop: 03/31/23 17:46 Last Admin: 03/31/23 17:59 Dose: 30 mg Documented By: SUSAN Lidocaine (Lidocaine Patch 1 Each Adh..Patch) 1 each TOP NOW ONE Stop: 03/31/23 17:46 Last Admin: 03/31/23 18:01 Dose: 1 each Documented By: SUSAN Methocarbamol (Methocarbamol 500 Mg Tablet) 500 mg PO NOW ONE Stop: 03/31/23 17:46 Last Admin: 03/31/23 18:02 Dose: 500 mg Documented By: SUSAN Prednisone (Prednisone 20 Mg Tablet) 40 mg PO NOW ONE Stop: 03/31/23 17:46 Last Admin: 03/31/23 18:02 Dose: 40 mg Documented By: SUSAN Vital Signs Vital signs: Vital Signs - 8 hr 03/31/23 17:16 03/31/23 18:50 03/31/23 18:51 Temperature 98.9 F Pulse Rate 92 H 75 75 Respiratory Rate 16 18 18 Blood Pressure 135/78 134/78 134/78 Pulse Oximetry 99 100 100 Oxygen Delivery Method Room Air Room Air Room Air MDM - Back Pain/Injury <Tessy Terrell, [facility] - Last Filed: 03/31/23 19:11> Imaging Data Thoracic XR: Radiologist's Impression: PROCEDURE:? XR THORACIC SPINE 2V ? INDICATIONS:? trauma ? TECHNIQUE:? 2 views of the thoracic spine were acquired.? ? COMPARISON:? None. ? FINDINGS:? ? Bones:? No fractures or dislocations.? No suspicious bony lesions.? Visualized ribs are intact.? Multilevel disc space narrowing and endplate osteophyte formation. ? Soft tissues:? No paravertebral stripe thickening.? ? ? IMPRESSION:? Multilevel degenerative disc disease. No acute fracture. No osseous lesion. If symptoms and/or clinical suspicion for pathology persist, further assessment with repeat, or advanced imaging (e.g., CT, MRI, or bone scan) may be helpful for further assessment. ? ? Dictated by: Anita Shanks M.D. on 03/31/2023 at 18:10 ? ? Approved by: Anita Shanks M.D. on 03/31/2023 at 18:10 ? cervical xr: Radiologist's Impression: PROCEDURE:? XR CERVICAL SPINE 2V OR 3V ? INDICATIONS:? trauma ? TECHNIQUE:? 4 view(s) of the cervical spine were acquired.? ? COMPARISON:? None. ? FINDINGS:? ? Bones:? No fractures or dislocations to the C7 level.? The lateral masses of C1 appear intact on the odontoid view.? No suspicious bony lesions.? ? Soft tissues:? No prevertebral soft tissue swelling.? ? ? IMPRESSION:? No acute fracture. No osseous lesion. If symptoms and/or clinical suspicion for pathology persist, further assessment with repeat, or advanced imaging (e.g., CT, MRI, or bone scan) may be helpful for further assessment. ? ? Dictated by: Anita Shanks M.D. on 03/31/2023 at 18:05 ? ? Approved by: Anita Shanks M.D. on 03/31/2023 at 18:05 ? MDM Narrative Medical decision making narrative: Chief Complaint: Worsening upper back pain after fall 1 week ago Independent historian: Patient Multiple etiologies for patient's symptoms considered including, but not limited to: disc injury/herniation, radiculopathy, paraspinal or other muscular strain, chronic pain, acute fracture, urinary tract infection, osteoarthritis, degenerative disc disease, cauda equina, osteomyelitis, epidural abscess, spinal stenosis, ligamental injury. I have independently reviewed the patient's vital signs and nursing notes as well as prior records if available. My independent review of imaging, patient has cervical and thoracic spinal x- rays are negative for acute fracture, osseous abnormality Suspect likely musculoskeletal etiology strain/sprain,/acute exacerbation of chronic low back pain. No back pain red flags on history or physical. No history of IV substance use, or bony tenderness to palpation, no trauma, no bony tenderness to palpation, afebrile, no CVAT, no urinary symptoms. No bowel or urinary incontinence or retention, no saddle anesthesia, no new/worsening distal weakness, decreased reflexes or foot drop. Pt is nontoxic appearing. Patient has soft tissue tenderness to palpation. Pt is neurovascularly intact distally, afebrile, without immunosuppression or evidence of infection, peritoneal signs, hypertensive crisis, incontinence, or meningeal signs. Patient's symptoms improved over duration of stay with above-stated therapies. Discharge diagnosis, return precautions and plan discussed with patient followed by verbalization of understanding. Social considerations that may affect disposition: none Questions are addressed and there is agreement with the plan and for follow-up. Patient is appropriate for outpatient management. MIPS: This encounter doesn't have any diagnosis' associated with MIPS criteria. Questions are addressed and there is agreement with the plan and for follow-up. I consulted with the ED attending physician Dr. Barrera as needed for higher level of care considerations and they were available for discussion and recommendations regarding plan of care and diagnostic testing. Patient is appropriate for outpatient management. Discharge Plan Departure Patient Disposition: Home Clinical Impression: Acute upper back pain Fall Qualifiers: Encounter type: initial encounter Qualified Code(s): W19.XXXA - Unspecified fall, initial encounter Instructions: DI for Muscle Strain, DI for Back Pain With Sciatica Activity Restrictions/Additional Instructions: *You have been diagnosed with a fall, exacerbation your upper back pain. This could be due to mild arthritis. For muscle spasms please take the muscle relaxer every 8 hours as needed, use topical lidocaine patches or Voltaren gel to help with pain, take ibuprofen and Tylenol together every 6-8 hours for pain control please stay hydrated, avoid over exerting yourself and practice gentle range of motion throughout the day to prevent getting stiff. Your x-rays look great, no evidence of vertebral injury. Please follow-up with your primary care provider for referral to physical therapy, this can help prevent flares of this in the future. Try to avoid heavy lifting, I have given you a work note for the next 3 days to use as needed. *What to do: *Please continue to take your regular medications as directed. [ x] New medication prescriptions sent to your pharmacy: [Rica Fisher ] [ ] New medication written as a paper prescription [ ] No new medications given *Please call and schedule follow up with your primary care provider in 2-3 days, at least for an update. Let them know you were seen in the Emergency Department for the above problem. We will electronically transmit a record of today's note if your PCP or specialist is in our system. *If you do not have a primary care provider please contact [phone] to establish care with one of the [facility] primary care providers. *Return to the Emergency Department for worsening symptoms, inability to keep liquids down, fever greater than 101F, chills, or other concerning symptom. Prescriptions: New methocarbamol 500 mg tablet 500 mg PO TID PRN (Reason: muscle spasm) Qty: 20 0RF prednisone 20 mg tablet 20 mg PO DAILY Qty: 4 0RF lidocaine [Lidoderm] 5 % adhesive patch,medicated 1 patch topical DAILY PRN (Reason: back pain) Qty: 30 0RF Rx Instructions: leave on most painful area for up to 12 hrs No Action prednisone 20 mg tablet 40 mg PO DAILY Qty: 8 0RF Referrals: Roney Earl MD [Primary Care Provider] - Stand Alone Forms: Patient Portal/API, Work Release Note <Antonio Barrera, - Last Filed: 03/31/23 18:29> Cosign ED Attending Cosignature Attestation: Dr Barrera Co-Sign Statement: I was available for consultation during this patient's emergency department visit. This chart is signed by myself for administrative purposes only. I did not have direct contact with this patient during this visit. They were seen independently by the APC.
[2023-03-31] MEDS: KETOROLAC 30 MG/ML VIAL IM (17:59)
[2023-03-31] MEDS: LIDOCAINE PATCH 1 EACH ADH..PATCH TOP (18:01)
[2023-03-31] MEDS: methocarbamoL 500 MG TABLET PO (18:02)
[2023-03-31] MEDS: predniSONE 20 MG TABLET 40 MG PO (18:02)
[2023-03-31 18:50] VITALS: BP 134/78; PULSE 75; RESP 18; O2SAT 100
[2023-03-31 18:51] VITALS: BP 134/78; PULSE 75; RESP 18; O2SAT 100
== END 2023-03-31 18:52 | disposition home or self-care (01) ==
PROVIDERS: Emergency Provider Nurse Practitioner Critical Care Medicine; PCP Internal Medicine
DX: M54.6 Pain in thoracic spine (principal); W19.XXXA Unspecified fall, initial encounter
CPT/HCPCS: 72040; 72070; 96372; 99283; J1885

== ENCOUNTER 2023-06-24 18:59 | Emergency (ER) | payer MEDICARE, MEDICAID, SELFPAY ==
[2023-06-24 19:30] VITALS: BP 139/78; PULSE 75; RESP 18; TEMP 37.3; O2SAT 98; BMI 24.6
[2023-06-24 22:20] VITALS: BP 121/72; PULSE 68; RESP 18; TEMP 36.4; O2SAT 99
--- NOTE | 2023-06-24 23:35 | PC.NURSE ---
small dark dot noted on finger however unable to feel / see a splinter.
--- NOTE | 2023-06-24 23:35 | ED.SKABFB ---
HPI - Skin/Abscess/Foreign Bdy General Chief complaint: Skin/Abscess/Foreign Body Stated complaint: Sliver in finger making finger numb Time Seen by Provider: 06/24/23 23:35 Source: patient Mode of arrival: Ambulatory Limitations: no limitations History of Present Illness HPI narrative: Patient is a 43-year-old male without any significant medical problems presenting today with left little finger sliver. He reports that there is a sliver of wood in his little finger he tried to get some of it out but it has broken. He is having some pain and discomfort. Right-hand dominant Related Data Previous Rx's Medication Instructions Recorded prednisone 20 mg tablet 40 mg PO DAILY #8 tabs 01/09/23 lidocaine 5 % topical patch 1 patch topical DAILY PRN back 03/31/23 (Lidoderm) pain #30 ea methocarbamol 500 mg tablet 500 mg PO TID PRN muscle spasm #20 03/31/23 tabs prednisone 20 mg tablet 20 mg PO DAILY #4 tabs 03/31/23 Allergies Allergy/AdvReac Type Severity Reaction Status Date / Time No Known Drug Allergies Allergy Verified 02/09/23 18:34 Review of Systems Review of Systems ROS Unobtainable: All systems reviewed & are unremarkable except as noted in HPI and below Patient History Medical History Allergies (~1999) Chronic back pain (~2014) Mixed hyperlipidemia Reducible left inguinal hernia Surgical History Anesthesia History of hernia repair (01/13/22) Family History Father Mental health problem Mother Back problem Diabetes mellitus Hypertension Hyperlipidemia Grandmother Cancer Diabetes mellitus History of heart disease Hyperlipidemia Hypertension Social History household members: family Smoking Status: Current every day smoker alcohol intake: current Smoking Status: Current every day smoker tobacco type: cigarettes alcohol intake frequency: a few times a month Substance Use Type: does not use Exam Initial Vital Signs Initial Vital Signs: Vital Signs Temperature 99.1 F 06/24/23 19:30 Pulse Rate 75 06/24/23 19:30 Respiratory Rate 18 06/24/23 19:30 Blood Pressure 139/78 06/24/23 19:30 Pulse Oximetry 98 06/24/23 19:30 Oxygen Delivery Method Room Air 06/24/23 19:30 GENERAL: Well-appearing, well-nourished and in no acute distress. CARDIOVASCULAR: peripheral pulses in tact, cap refill <2 sec RESPIRATORY: No respiratory distress, speaks in full sentences without difficulty EXTREMITIES: Normal range of motion, no clubbing or edema. Neurovascularly intact NEUROLOGICAL: Cranial nerves II through XII grossly intact. Normal gait and speech. SKIN: Right hand little finger abrasion laterally where he tried to get the sliver out but really no foreign body is seen or felt. Hands are quite callused and dirty. No foreign body appreciated Course Vital Signs Vital signs: Vital Signs - 8 hr 06/24/23 22:20 Temperature 97.5 F L Pulse Rate 68 Respiratory Rate 18 Blood Pressure 121/72 Pulse Oximetry 99 MDM - Skin/Abscess/Foreign Bdy MDM Narrative Medical decision making narrative: I do suspect that there is a body at this time however nothing I can see. Recommended more soap water soaks encouraged antibiotic ointment and hopefully it will surface. Discussed signs of infection with him. Discharge Plan Departure Patient Disposition: Home Clinical Impression: Foreign body in skin Instructions: DI for Removal of Foreign Body From Skin Activity Restrictions/Additional Instructions: *You have been diagnosed with sliver *What to do: At this time I can not remove the sliver that I can not see. I recommend warm soapy water soaks antibiotic ointment. Hopefully your body will push this liver out *Continue to take medications as directed Antibiotic ointment twice daily *Follow up with your primary care provider in 2-3 days or call [phone] *Return to ER if you should have increased redness swelling pain drainage fever or any new, worsening or concerning symptoms Prescriptions: No Action methocarbamol 500 mg tablet 500 mg PO TID PRN (Reason: muscle spasm) Qty: 20 0RF prednisone 20 mg tablet 20 mg PO DAILY Qty: 4 0RF lidocaine [Lidoderm] 5 % adhesive patch,medicated 1 patch topical DAILY PRN (Reason: back pain) Qty: 30 0RF Rx Instructions: leave on most painful area for up to 12 hrs prednisone 20 mg tablet 40 mg PO DAILY Qty: 8 0RF Referrals: Roney Earl MD [Primary Care Provider] - Stand Alone Forms: Patient Portal/API
== END 2023-06-24 23:47 | disposition home or self-care (01) ==
PROVIDERS: Emergency Provider Emergency Medicine; PCP Internal Medicine
DX: M79.5 Residual foreign body in soft tissue (principal)
CPT/HCPCS: 99281

== ENCOUNTER 2023-06-28 17:18 | Emergency (ER) | payer MEDICARE, MEDICAID, SELFPAY ==
[2023-06-28 17:23] VITALS: BP 127/69; PULSE 89; RESP 18; TEMP 36.7; O2SAT 100; BMI 24.5
--- NOTE | 2023-06-28 18:08 | ED_ITS ---
HPI - Wound/Laceration General Chief Complaint: Wound/Laceration Stated Complaint: sliver Time Seen by Provider: 06/28/23 17:59 Source: patient Mode of arrival: Ambulatory History of Present Illness HPI narrative: 43-year-old male presents with a chief complaint of increasing pain and redness on his left 4th finger. He was seen and evaluated last week after having punctured his finger with a sliver. It was unable to be removed at that time, patient was encouraged to soak it and return for worsening symptoms. He returns with increasing redness at the puncture site but no limited range of motion, no drainage, no fever. Related Data Previous Rx's Medication Instructions Recorded prednisone 20 mg tablet 40 mg PO DAILY #8 tabs 01/09/23 lidocaine 5 % topical patch 1 patch topical DAILY PRN back 03/31/23 (Lidoderm) pain #30 ea methocarbamol 500 mg tablet 500 mg PO TID PRN muscle spasm #20 03/31/23 tabs prednisone 20 mg tablet 20 mg PO DAILY #4 tabs 03/31/23 doxycycline hyclate 100 mg tablet 100 mg PO BID #20 tabs 06/28/23 Allergies Allergy/AdvReac Type Severity Reaction Status Date / Time No Known Drug Allergies Allergy Verified 06/28/23 17:22 Review of Systems Review of Systems Narrative: GENERAL: Denies chills, fatigue, malaise, fever, sweats. HEENT: Denies sinus pain, ear pain, sore throat, difficulty swallowing, dizziness. RESPIRATORY: Denies dyspnea, cough, wheezing, hemoptysis, sputum. CARDIOVASCULAR: Denies chest pain, palpitations, orthopnea, edema, GASTROINTESTINAL: Denies nausea, vomiting, abdominal pain, diarrhea, constipation, melena. : Denies dysuria, frequency, incontinence, hematuria, urinary retention. MUSCULOSKELETAL: See HPI SKIN: Denies rash, skin lesions, or other NEUROLOGIC: Denies weakness, headache, numbness, change in speech, confusion, seizures, incoordination. PSYCHIATRIC: No concerning psychosocial issues. 12 point review of systems is negative except for those stated above Patient History Medical History Allergies (~1999) Chronic back pain (~2014) Mixed hyperlipidemia Reducible left inguinal hernia Surgical History Anesthesia History of hernia repair (01/13/22) Family History Father Mental health problem Mother Back problem Diabetes mellitus Hypertension Hyperlipidemia Grandmother Cancer Diabetes mellitus History of heart disease Hyperlipidemia Hypertension Social History household members: family Smoking Status: Current every day smoker alcohol intake: current Smoking Status: Current every day smoker tobacco type: cigarettes alcohol intake frequency: a few times a month Substance Use Type: does not use Exam Narrative Exam Narrative: GEN: AOx3 and in mild distress EYES: Pupils are equal, round, and reactive to light and accommodation. Extraoccular muscles are intact bilaterally. There is no subconjunctival hemorrhage or exudate. CHEST: Lungs are clear to auscultation bilaterally and free of wheezes, rales, or rhonchi. Heart rate is regular rhythm, there are no murmurs, clicks, rubs, or gallops. There is no chest wall tenderness. ABD: Abdomen is soft and nontender. There is no guarding or rebound. Bowel sounds are normal in all 4 quadrants. There is no mass or organomegaly. EXT: Left 5th finger with tenderness, erythema and some swelling laterally, no drainage, no circumferential erythema, no signs of flexor tenosynovitis. SKIN: Warm, pink, and dry. No erythema or rash Initial Vital Signs Initial Vital Signs: Vital Signs Temperature 98.0 F 06/28/23 17:23 Pulse Rate 89 06/28/23 17:23 Respiratory Rate 18 06/28/23 17:23 Blood Pressure 127/69 06/28/23 17:23 Pulse Oximetry 100 06/28/23 17:23 Oxygen Delivery Method Room Air 06/28/23 17:23 Procedures Foreign Body OTHER Time Out Performed: yes Foreign Body Removal Site: right and hand Description of foreign body: other (Small wood splinter) Technique: removal with forceps and incision made to facilitate removal Confirmed by:: direct visualization Complications: none Post-procedure exam: awake, alert, normal BP, normal HR and normal O2 sat Neurovascular: normal distal pulse, normal capillary fill, distal light touch sensation intact and distal motor function normal Nerve Block Nerve Block 1: Time out performed: Yes Local Anesthetic: lidocaine 2% Amount of anesthesia used (mL): 4 Side: left Nerve Blocks: digital Procedure Successful: Yes Patient Tolerated Procedure: Well Complications: none Course Vital Signs Vital signs: Vital Signs - 8 hr 06/28/23 17:23 Temperature 98.0 F Pulse Rate 89 Respiratory Rate 18 Blood Pressure 127/69 Pulse Oximetry 100 Oxygen Delivery Method Room Air MDM - Wound/Laceration MDM Narrative Medical decision making narrative: [43] year old patient presents with worsening pain and redness after he had a splinter in his finger last week Multiple etiologies for patient's symptoms considered including, but not limited to: [Retained foreign body versus cellulitis versus tenosynovitis versus other] Prior Charts reviewed in our EMR Primary Historian: patient History and physical exam are reassuring, foreign body is palpable, no signs of tenosynovitis, low concern for abscess or deep space infection. Patient given digital block, small incision made and splinter easily removed with hemostats. Minimal bleeding afterwards, low suspicion for ongoing retained foreign body. Patient given antibiotics. Findings and discharge diagnosis discussed with patient/family followed by verbalization of understanding Return precautions discussed with patient/family whom verbalize understanding of diagnosis and plan Discharge Plan Departure Patient Disposition: Home Clinical Impression: Foreign body in skin Instructions: DI for Puncture Wound Activity Restrictions/Additional Instructions: *You have been diagnosed with [left 5th finger foreign body status post removal] *What to do: *Please continue to take your regular medications as directed. [ x] New medication prescriptions sent to your pharmacy: [[facility] in [place] ] [ ] New medication written as a paper prescription [ ] No new medications given *Please follow up with your primary care provider in 2-3 days, call for an appointment. Let them know you were seen in the Emergency Department and that we ask that you be seen in follow up. We will electronically transmit a record of today's note if your PCP is in our system *If you do not have a primary care provider please contact the [facility] Resource line at [phone]. They will ask some questions about your medical history and help get you set up with a doctor in the community. *Return to Emergency Department if you should have any new, worsening or concerning symptoms, such as [fever greater than 101 F, shaking chills, worsening pain, persistent vomiting or other bothersome symptoms] Prescriptions: New doxycycline hyclate 100 mg tablet 100 mg PO BID Qty: 20 0RF No Action methocarbamol 500 mg tablet 500 mg PO TID PRN (Reason: muscle spasm) Qty: 20 0RF prednisone 20 mg tablet 20 mg PO DAILY Qty: 4 0RF lidocaine [Lidoderm] 5 % adhesive patch,medicated 1 patch topical DAILY PRN (Reason: back pain) Qty: 30 0RF Rx Instructions: leave on most painful area for up to 12 hrs prednisone 20 mg tablet 40 mg PO DAILY Qty: 8 0RF Referrals: Roney Earl MD [Primary Care Provider] - Stand Alone Forms: Patient Portal/API
[2023-06-28] MEDS: LIDOCAINE 2% INJ SDV 5ML 5 ML (18:57)
== END 2023-06-28 19:03 | disposition home or self-care (01) ==
PROVIDERS: Emergency Provider Emergency Medicine; PCP Internal Medicine
DX: S60.455A Superficial foreign body of left ring finger, initial encounter (principal); W45.8XXA Other foreign body or object entering through skin, initial encounter
CPT/HCPCS: 10120; 99282; 99283

== ENCOUNTER 2023-08-28 10:23 | Emergency (ER) | payer MEDICARE, MEDICAID, SELFPAY ==
[2023-08-28 10:26] VITALS: BP 138/82; PULSE 76; RESP 18; TEMP 37.2; O2SAT 99; BMI 25.0
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
[2023-08-28 11:05] VITALS: PULSE 68
== END 2023-08-28 11:10 | disposition home or self-care (01) ==
PROVIDERS: Emergency Provider Physician Assistant Medical; PCP Internal Medicine
DX: S69.91XA Unspecified injury of right wrist, hand and finger(s), initial encounter (principal); V86.95XA Unspecified occupant of 3- or 4- wheeled all-terrain vehicle (ATV) injured in nontraffic accident, initial encounter
CPT/HCPCS: 73130; 99283

== ENCOUNTER 2023-09-03 16:30 | Emergency (ER) | payer MEDICARE, MEDICAID, SELFPAY ==
[2023-09-03 16:37] VITALS: BP 143/76; PULSE 72; RESP 16; TEMP 36.7; O2SAT 99; BMI 25.0
--- NOTE | 2023-09-03 16:40 | DI.RAD.S_ITS ---
PROCEDURE: XR HAND RT MIN 3V INDICATIONS: hand pain/injury a week ago not getting any better TECHNIQUE: 3 views of the hand(s) acquired. COMPARISON: [facility], CR, XR HAND RT MIN 3V, 08/28/2023, 10:34. [facility], CR, XR HAND RT MIN 3V, 08/19/2022, 17:52. FINDINGS: Bones: No fractures or dislocations. Carpal bones are normally aligned. No suspicious bony lesions. Soft tissues: No suspicious soft tissue calcifications. IMPRESSION: No acute osseous abnormality. If pain persists with conservative management, consider repeat x-ray in 10-14 days or cross-sectional imaging. Dictated by: Peterson Flowers M.D. on 09/03/2023 at 17:07 Approved by: Peterson Flowers M.D. on 09/03/2023 at 17:08
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
== END 2023-09-03 17:39 | disposition home or self-care (01) ==
PROVIDERS: Emergency Provider Physician Assistant; PCP Internal Medicine
DX: S69.91XA Unspecified injury of right wrist, hand and finger(s), initial encounter (principal); X58.XXXA Exposure to other specified factors, initial encounter
CPT/HCPCS: 73130; 99281; 99283

== ENCOUNTER 2024-04-18 10:23 | Emergency (ER) | payer MEDICARE, MEDICAID, SELFPAY ==
[2024-04-18 10:29] VITALS: BP 161/82; PULSE 86; RESP 17; TEMP 36.7; BMI 25.0
--- NOTE | 2024-04-18 10:37 | DI.RAD.S_ITS ---
PROCEDURE: XR FINGER LT MIN 2V INDICATIONS: table saw injury TECHNIQUE: AP hand, 2 views of the 3rd finger(s) acquired. COMPARISON: [facility], CR, XR FINGER RT MIN 2V, 01/01/2023, 18:23. FINDINGS: Bones: Questionable subtle nondisplaced lucency at the tip of the distal phalanx. No displaced fracture. Soft tissues: Soft tissue injury to distal 3rd ray. IMPRESSION: Soft tissue injury to the distal 3rd ray. There may be a nondisplaced irregularity seen on oblique view at the tip of the distal phalanx. No displaced injury or dislocation. Dictated by: Nayan Acosta M.D. on 04/18/2024 at 10:59 Approved by: Nayan Acosta M.D. on 04/18/2024 at 11:01
--- NOTE | 2024-04-18 13:12 | ED.WOUNDLAC ---
HPI - Wound/Laceration General Chief Complaint: Wound/Laceration Stated Complaint: Cut left Middle finger Time Seen by Provider: 04/18/24 12:51 Source: patient Mode of arrival: Family Vehicle History of Present Illness HPI narrative: Patient is a healthy 44-year-old male presents today with left ring finger laceration with table saw. This was at home not work. He reports complete numbness at the distal tip. Full range of motion there is nail bed involvement. No obvious open bone or fracture. Related Data Previous Rx's Medication Instructions Recorded prednisone 20 mg tablet 40 mg (2 x 20 mg) PO DAILY #8 tabs 01/09/23 lidocaine 5 % topical patch 1 patch topical DAILY PRN back 03/31/23 (Lidoderm) pain #30 ea methocarbamol 500 mg tablet 500 mg PO TID PRN muscle spasm #20 03/31/23 tabs prednisone 20 mg tablet 20 mg PO DAILY #4 tabs 03/31/23 doxycycline hyclate 100 mg tablet 100 mg PO BID #20 tabs 06/28/23 cephalexin 500 mg capsule 500 mg PO TID #30 caps 04/18/24 Allergies Allergy/AdvReac Type Severity Reaction Status Date / Time No Known Drug Allergies Allergy Verified 04/18/24 10:29 Patient History Medical History Reducible left inguinal hernia Mixed hyperlipidemia Allergies (~1999) Chronic back pain (~2014) Surgical History Anesthesia History of hernia repair (01/13/22) Family History Father Mental health problem Mother Back problem Diabetes mellitus Hypertension Hyperlipidemia Grandmother Cancer Diabetes mellitus History of heart disease Hyperlipidemia Hypertension Social History household members: family Smoking Status: Current every day smoker alcohol intake: current Smoking Status: Current every day smoker tobacco type: cigarettes alcohol intake frequency: a few times a month Substance Use Type: does not use Exam Initial Vital Signs Initial Vital Signs: Vital Signs Temperature 98.1 F 04/18/24 10:29 Pulse Rate 86 04/18/24 10:29 Respiratory Rate 17 04/18/24 10:29 Blood Pressure 161/82 H 04/18/24 10:29 GENERAL: Well-appearing, well-nourished and in no acute distress. CARDIOVASCULAR: peripheral pulses in tact, cap refill <2 sec RESPIRATORY: No respiratory distress, speaks in full sentences without difficulty EXTREMITIES: Normal range of motion, no clubbing or edema. Neurovascularly intact NEUROLOGICAL: Cranial nerves II through XII grossly intact. Normal gait and speech. SKIN: Left ring finger distal tip involvement but no cuticle or significant nail bed involvement it is all at the distal end. No obvious suturable laceration. No open bone fragments. Course Orders Ordered: ED Orders 04/18/24 10:37 XR finger LT min 2V Stat Discontinued Medications Diphtheria/Tetanus/Acell Pertussis (Tet,Diph,Pertuss(Acell),Vac/Pf 0.5 Ml Syringe) 0.5 ml IM .ONCE ONE Stop: 04/18/24 13:19 Last Admin: 04/18/24 14:15 Dose: 0.5 ml Documented By: SHANTI Vital Signs Vital signs: Vital Signs - 8 hr 04/18/24 10:29 04/18/24 14:21 Temperature 98.1 F Pulse Rate 86 80 Respiratory Rate 17 18 Blood Pressure 161/82 H 115/67 Pulse Oximetry 99 Oxygen Delivery Method Room Air MDM - Wound/Laceration Imaging Data Extremity x-ray #1: Radiologist's Impression: PROCEDURE: XR FINGER LT MIN 2V INDICATIONS: table saw injury TECHNIQUE: AP hand, 2 views of the 3rd finger(s) acquired. COMPARISON: [facility], , XR FINGER RT MIN 2V, 01/01/2023, 18:23. FINDINGS: Bones: Questionable subtle nondisplaced lucency at the tip of the distal phalanx. No displaced fracture. Soft tissues: Soft tissue injury to distal 3rd ray. IMPRESSION: Soft tissue injury to the distal 3rd ray. There may be a nondisplaced irregularity seen on oblique view at the tip of the distal phalanx. No displaced injury or dislocation. Dictated by: Nayan Acosta M.D. on 04/18/2024 at 10:59 [facility] Narrative Medical decision making narrative: Patient 44-year-old male history of left ring finger injury with table saw. It is at the very distal tip he has ongoing numbness. No suturable laceration there is avulsion of skin laterally next to the nail. No obvious bone. X-ray has been reviewed questionable fracture. Patient's finger was irrigated under tap water with soap and water. Given finger splint along with dressing by nursing staff. Tetanus is given here in the ED Started on antibiotics He has not complaining of pain due to numbness Tylenol Motrin as needed. Discharge Plan Departure Patient Disposition: Home Clinical Impression: Laceration of blood vessel of left ring finger Instructions: DI for Laceration Repair Activity Restrictions/Additional Instructions: *You have been diagnosed with left ring finger laceration *What to do: At this time I am not sure that you will get feeling back in your fingertip. This will just take time to heal. Please continue to wash it with soap and water. There is questionable fracture at the very tip of your finger. Please keep finger splint on. This is going to take a few weeks to heal. Keep elevated ice as needed *Continue to take medications as directed Tylenol 1000 mg every 6 hours for ugju-gc-gioigxmv pain Motrin 600 mg every 6 hours for qzpy-jt-ovufbule pain Keflex 500 mg 3 times a day for 10 days *Follow up with your primary care provider in 2-3 days or call [phone] I do recommend that you follow-up with orthopedics to make sure that it is healing appropriately, and your primary care *Return to ER if you should have increasing redness swelling pain drainage or any new, worsening or concerning symptoms Prescriptions: New cephalexin 500 mg capsule 500 mg PO TID Qty: 30 0RF No Action methocarbamol 500 mg tablet 500 mg PO TID PRN (Reason: muscle spasm) Qty: 20 0RF prednisone 20 mg tablet 20 mg PO DAILY Qty: 4 0RF lidocaine [Lidoderm] 5 % adhesive patch,medicated 1 patch topical DAILY PRN (Reason: back pain) Qty: 30 0RF Rx Instructions: leave on most painful area for up to 12 hrs doxycycline hyclate 100 mg tablet 100 mg PO BID Qty: 20 0RF prednisone 20 mg tablet 40 mg PO DAILY Qty: 8 0RF Referrals: [facility] [Provider Group] Roney Earl MD [Primary Care Provider] - Stand Alone Forms: Patient Portal/API
[2024-04-18] MEDS: TET,DIPH,PERTUSS(ACELL),VAC/PF 0.5 ML SYRINGE IM (14:15)
[2024-04-18 14:21] VITALS: BP 115/67; PULSE 80; RESP 18; O2SAT 99
== END 2024-04-18 14:21 | disposition home or self-care (01) ==
PROVIDERS: Emergency Provider Emergency Medicine; PCP Internal Medicine
DX: S61.215A Laceration without foreign body of left ring finger without damage to nail, initial encounter (principal); W27.0XXA Contact with workbench tool, initial encounter; Z23 Encounter for immunization
CPT/HCPCS: 73140; 90471; 99283; 90715

== ENCOUNTER 2025-01-25 17:39 | Emergency (ER) | payer OTHER, SELFPAY ==
[2025-01-25 17:53] VITALS: BP 138/70; PULSE 88; RESP 17; TEMP 37.2; O2SAT 99; BMI 24.3
--- NOTE | 2025-01-25 20:52 | DI.RAD.S_ITS ---
PROCEDURE: XR TOE LT MIN 2V INDICATIONS: Left great toe pain when walking. Callus present TECHNIQUE: 3 views of the 1st toe(s) acquired. COMPARISON: None. FINDINGS AND IMPRESSION: Mild 1st MTP arthrosis and valgus alignment. No acute displaced fracture or dislocation. Incidentally noted bipartite medial sesamoid. Prominent plantar osteophyte at the base of the distal phalanx. No suspicious soft tissue calcifications. If there is high concern for further derangement, consider MRI evaluation. Dictated by: Nayan Acosta M.D. on 01/25/2025 at 21:19 Approved by: Nayan Acosta M.D. on 01/25/2025 at 21:20
--- NOTE | 2025-01-25 21:27 | ED_ITS ---
HPI - Extremity Problem General Chief complaint: Extremity Problem,Nontraumatic Stated complaint: toe px Time Seen by Provider: 01/25/25 20:31 Source: patient Mode of arrival: Ambulatory History of Present Illness HPI Narrative: 44-year-old male without any significant past medical history comes into the ED from home for evaluation of left toe pain, he states that he has a callus has been forming for the past several weeks months states that he has gotten more pain to this area noticed a little redness therefore decided come into the ED for further evaluation treatment denies any trauma to it denies any other symptoms at this time. States he did not take any medications to help with his symptoms Related Data Previous Rx's Medication Instructions Recorded prednisone 20 mg tablet 40 mg (2 x 20 mg) PO DAILY #8 tabs 01/09/23 lidocaine 5 % topical patch 1 patch topical DAILY PRN back 03/31/23 (Lidoderm) pain #30 ea methocarbamol 500 mg tablet 500 mg PO TID PRN muscle spasm #20 03/31/23 tabs prednisone 20 mg tablet 20 mg PO DAILY #4 tabs 03/31/23 doxycycline hyclate 100 mg tablet 100 mg PO BID #20 tabs 06/28/23 cephalexin 500 mg capsule 500 mg PO TID #30 caps 04/18/24 cephalexin 500 mg capsule 500 mg PO Q6H 7 days #28 caps 01/25/25 Allergies Allergy/AdvReac Type Severity Reaction Status Date / Time No Known Drug Allergies Allergy Verified 01/25/25 17:56 Review of Systems Review of Systems Narrative: General: Cooperative, comfortable, well-developed, not in acute distress HEENT: Normocephalic, atraumatic, PERRLA, normal sclera, eyelids normal, Neck: Active full range of motion, atraumatic Chest: Normal to inspection, negative crepitus, no overlying erythema ecchymosis Respiratory: Normal respiratory effort, not in acute respiratory distress, clear to auscultation bilaterally negative cough, wheeze, tachypnea, rhonchi, rales Cardiology: Regular rate rhythm negative gallop, murmur, rubs GI/: Normal to inspection, soft, nonrigid, no tenderness to palpation, exam deferred MSK: Pain to the left great toe Skin: No rashes lesions noted Neuro: Alert awake oriented x3, moves all 4 extremities spontaneously, cranial nerves intact, able to answer all questions appropriately follows commands appropriately Psych: Cooperative, negative suicidal or homicidal ideations Patient History Medical History Reducible left inguinal hernia Mixed hyperlipidemia Allergies (~1999) Chronic back pain (~2014) Surgical History Anesthesia History of hernia repair (01/13/22) Family History Father Mental health problem Mother Back problem Diabetes mellitus Hypertension Hyperlipidemia Grandmother Cancer Diabetes mellitus History of heart disease Hyperlipidemia Hypertension Social History household members: family Smoking Status: Current every day smoker alcohol intake: current Smoking Status: Current every day smoker tobacco type: cigarettes alcohol intake frequency: a few times a month Exam Narrative Exam Narrative: General: Cooperative, comfortable, well-developed, not in acute distress HEENT: Normocephalic, atraumatic, PERRLA, normal sclera, eyelids normal, Neck: Active full range of motion, atraumatic Chest: Normal to inspection, negative crepitus, no overlying erythema ecchymosis Respiratory: Normal respiratory effort, not in acute respiratory distress, clear to auscultation bilaterally negative cough, wheeze, tachypnea, rhonchi, rales Cardiology: Regular rate rhythm negative gallop, murmur, rubs GI/: Normal to inspection, soft, nonrigid, no tenderness to palpation, exam deferred MSK: There is a keith noted to the medial aspect of the left great toe mild tenderness to palpation but no crepitus neurovascularly intact, there is some mild erythema noted but no streaking, no purulent discharge noted patient is able to stand bear weight ambulate unassisted Skin: No rashes lesions noted Neuro: Alert awake oriented x3, moves all 4 extremities spontaneously, cranial nerves intact, able to answer all questions appropriately follows commands appropriately Psych: Cooperative, negative suicidal or homicidal ideations Initial Vital Signs Initial Vital Signs: Vital Signs Temperature 98.9 F 01/25/25 17:53 Pulse Rate 88 01/25/25 17:53 Respiratory Rate 17 01/25/25 17:53 Blood Pressure 138/70 01/25/25 17:53 Pulse Oximetry 99 01/25/25 17:53 Oxygen Delivery Method Room Air 01/25/25 17:53 Course Orders Ordered: ED Orders 01/25/25 20:52 XR toe LT min 2V Stat Discontinued Medications Cephalexin HCl (Cephalexin 250 Mg Capsule) 500 mg PO NOW ONE Stop: 01/25/25 21:28 Last Admin: 01/25/25 21:35 Dose: 500 mg Vital Signs Vital signs: Vital Signs - 8 hr 01/25/25 17:53 Temperature 98.9 F Pulse Rate 88 Respiratory Rate 17 Blood Pressure 138/70 Pulse Oximetry 99 Oxygen Delivery Method Room Air MDM - Extremity (Nontraumatic) Imaging Data Extremity x-ray #1: Radiologist's Impression: [address] [address] XRay Report Signed Patient: Elmer Blas MR#: [id number] : 1980 Acct:[id number] Age/Sex: 44 / M Date of Service: 01/25/25 Loc: ED Accession Number: [id number] Procedure: XR toe LT min 2V Ordering Provider: Prosper Glaser D.O. PROCEDURE: XR TOE LT MIN 2V INDICATIONS: Left great toe pain when walking. Callus present TECHNIQUE: 3 views of the 1st toe(s) acquired. COMPARISON: None. FINDINGS AND IMPRESSION: Mild 1st MTP arthrosis and valgus alignment. No acute displaced fracture or dislocation. Incidentally noted bipartite medial sesamoid. Prominent plantar osteophyte at the base of the distal phalanx. No suspicious soft tissue calcifications. If there is high concern for further derangement, consider MRI evaluation. [facility] Narrative Medical decision making narrative: 44-year-old male without any significant past medical history presents for left toe pain ongoing persistent for the past several weeks states that he does have a known callus there but due to persistent pain and noticed some redness to wanted to be evaluated on exam there is a callus noted to the medial aspect of the left great toe but no purulent discharge no streaking neurovascularly intact x-ray negative for any acute findings given erythema no streaking we will start patient prophylactically on antibiotics for cellulitis, strict return precautions were given he verbalized understanding of this and agrees to being discharged home with outpatient follow up Discharge Plan Departure Patient Disposition: Home Clinical Impression: Great toe pain Activity Restrictions/Additional Instructions: Please follow up with primary care and podiatry Please read the discharge instructions sheet carefully and bring all papers to all doctor follow-up visits, as it may contain information that your doctor may want to see. Disease processes change and evolve, if your symptoms worsen or if you develop any new symptoms that are concerning to you please return for evaluation. Your evaluation today does not show any evidence of any life- threatening/serious illnesses requiring admission to the hospital or surgery. Please follow-up with your doctor for re-evaluation in approximately 1 day. Seek immediate medical attention for any worrisome symptoms. *If you do not have a primary care provider please contact the [facility] Resource line at [phone]. They will ask some questions about your medical history and help get you set up with a doctor in the community. Prescriptions: New cephalexin 500 mg capsule 500 mg PO Q6H 7 Days Qty: 28 0RF No Action methocarbamol 500 mg tablet 500 mg PO TID PRN (Reason: muscle spasm) Qty: 20 0RF prednisone 20 mg tablet 20 mg PO DAILY Qty: 4 0RF lidocaine [Lidoderm] 5 % adhesive patch,medicated 1 patch topical DAILY PRN (Reason: back pain) Qty: 30 0RF Rx Instructions: leave on most painful area for up to 12 hrs doxycycline hyclate 100 mg tablet 100 mg PO BID Qty: 20 0RF prednisone 20 mg tablet 40 mg PO DAILY Qty: 8 0RF cephalexin 500 mg capsule 500 mg PO TID Qty: 30 0RF Referrals: Roney Earl MD [Primary Care Provider] - Stand Alone Forms: Patient Portal/API/Survey
[2025-01-25] MEDS: cephALEXin 250 MG CAPSULE 500 MG PO (21:35)
[2025-01-25 21:45] VITALS: BP 127/64; PULSE 69; RESP 16; O2SAT 97
== END 2025-01-25 21:48 | disposition home or self-care (01) ==
PROVIDERS: Emergency Provider Student in an Organized Health Care Education/Training Program; PCP Internal Medicine
DX: M79.675 Pain in left toe(s) (principal); F17.210 Nicotine dependence, cigarettes, uncomplicated
CPT/HCPCS: 73660; 99283